=== PATIENT | female | born 1985 | race African-American/Black ===

== ENCOUNTER → 2019-09-24 16:55 | Outpatient (CLI) | payer OTHER, SELFPAY ==
--- NOTE | ~2019-09-24 | XR_ITS ---
XR lumbar spine 2-3V 09/24/2019 17:41 Indication: Low back pain Procedure: 2 views lumbar spine Comparison: No prior studies for comparison. Findings: Vertebral body and disc heights are preserved. No fracture, subluxation or dislocation. No evidence for spondylolysis or spondylolisthesis. Pedicles intact. Sacral foramen are symmetric. Later al views limited by rotation. Impression: 1: No significant abnormality of the lumbar spine. Reviewed, dictated and finalized at location A. Impression: 1: No significant abnormality of the lumbar spine.
--- NOTE | ~2019-09-24 | XR_ITS ---
EXAMINATION: XR knee LT min 4V EXAM DATE: 09/24/2019 17:41 INDICATION: Initial encounter following injury, with pain of the left knee. TECHNIQUE: Left knee frontal, crosstable lateral, orthogonal oblique projections for interpretation. There is no prior study for comparison. FINDINGS: Along the medial aspect of the medial femoral condyle there is ossification which appears to be most likely an acute closed posttraumatic avulsion fracture, could be of the medial collateral ligament, measuring about 2 cm in craniocaudal length by 5 mm in thickness (Stieda fracture). There i s moderate amount of fluid within the left knee joint probably hemarthrosis. Recommend orthopedic con sult. IMPRESSION: 1. Probable acute medial collateral ligament avulsion fracture at the femoral condyle; recommend ort hopedic consult. 2. Moderate joint effusion/hemarthrosis. Reviewed, dictated and finalized at location A. IMPRESSION: 1. Probable acute medial collateral ligament avulsion fracture at the femoral condyle; recommend orthopedic consult. 2. Moderate joint effusion/hemarthrosis.
--- NOTE | ~2019-09-24 | XR_ITS ---
EXAMINATION: XR ankle RT min 3V EXAM DATE: 09/24/2019 17:40 INDICATION: No known recent injury provided at this time. Pain of the right heel. TECHNIQUE: Right ankle frontal, lateral and oblique projections obtained and reviewed. There is no p rior study for comparison. FINDINGS: The right ankle mortise appears intact. Tiny amount of posterior calcaneal spurring, Ach illes insertion enthesopathy. There are no acute fractures or dislocations identified. No Sharif's d eformity or evidence of calcaneal stress fracture There is no subcutaneous gas. The soft tissue is u nremarkable. There are no radiopaque foreign bodies. IMPRESSION: Tiny amount of Achilles tendon insertion enthesopathy. Reviewed, dictated and finalized at location A.
== END ==
PROVIDERS: PCP Emergency Medicine; Visit Provider Emergency Medicine
DX: M79.671 Pain in right foot (principal); M54.5 Low back pain; M25.562 Pain in left knee; M25.462 Effusion, left knee; R93.6 Abnormal findings on diagnostic imaging of limbs; M76.61 Achilles tendinitis, right leg
CPT/HCPCS: 72100; 73564; 73610

== ENCOUNTER 2019-09-25 17:30 | Emergency (ER) | payer OTHER, SELFPAY ==
[2019-09-25 18:00] VITALS: BP 126/75; PULSE 79; RESP 16; TEMP 36.5; O2SAT 99
--- NOTE | 2019-09-25 18:15 | ED.EXTPRO ---
HPI - Extremity Problem General Chief complaint: Extremity Injury, Lower Stated complaint: left knee pain Time Seen by Provider: 09/25/19 18:15 Source: patient and RN notes reviewed Mode of arrival: ambulatory Limitations: no limitations History of Present Illness HPI Narrative: This is a 33 years old female presented to the office for evaluation of left knee pain for 2 weeks. Symptoms began when she was jumping on trampoline 2 Sundays ago; pain is intermittent since then and worse when she is on her feet. She saw her doctor about a week ago who ordered an x-ray and she finally got time to do an x-ray yesterday and she went in to follow-up with him today who prompted her to come to urgent care. She is unsure why he sent her here however she said her doctor told her [facility] She had orthopedic contact info however the office was closed when she try to call. She also wonders about a work restriction and would like to get one. Related Data Home Medications Medication Instructions Recorded Confirmed ibuprofen 09/25/19 Allergies Allergy/AdvReac Type Severity Reaction Status Date / Time No Known Allergies Allergy Mild Verified 01/20/08 20:54 Review of Systems Review of Systems: Narrative: CONSTITUTIONAL: Denies fever ENT: Denies congestion CARDIOVASCULAR: Denies chest pain RESPIRATORY: Denies dyspnea GASTROINTESTINAL: Denies nausea, vomiting GENITOURINARY: Denies urinary symptoms SKIN: Denies rash/bruise MUSCULOSKELETAL: Reports left knee pain especially with weight bearing NEUROLOGIC: Denies numbness PMFSH Comments At time of signature, I agree with nursing past medical, surgical, social and family history. There is no relevant family history pertinent to the presenting complaint. Exam Narrative: Exam Narrative: GENERAL: This is a well-nourished, well-developed patient, in no apparent distress. CARDIOVASCULAR: Regular rate and rhythm without murmurs, gallops, or rubs. RESPIRATORY: Clear to auscultation. Breath sounds equal bilaterally. No wheezes, rales, or rhonchi. NEURO: awake, alert, and oriented to person, place and time. There were no obvious focal neurologic abnormalities. Steady gait EXTREMITIES:Patient is able to bear weight and ambulate antagia gait. No surface of trauma or obvious effusion. No overlying erythema or warmth. The left knee is without obvious asymmetry or deformity when comparing to the right. Patient is able to do a deep knee bend with symmetry, fully extended knee; however there is limitation with internal and external rotation. Nontender to palpate of the patella, no effusion. Nontender over the medial or lateral joint line, or medial or lateral tibial plateaus. Nontender over the proximal fibular head. There is tenderness to palpate popliteal fossa. NO quadriceps tenderness. Distal motor and neurovascular status intact. [place] Coma Scale Eye Opening: Spontaneous 4 Maegan Coma Scale Motor: Obeys Commands 6 Maegan Coma Scale Verbal: Oriented 5 Course Vital Signs Vital signs: Vital Signs Temperature 97.7 F 09/25/19 18:00 Pulse Rate 79 09/25/19 18:00 Respiratory Rate 16 09/25/19 18:00 Blood Pressure 126/75 09/25/19 18:00 Pulse Oximetry 99 09/25/19 18:00 Temperature 97.7 F 09/25/19 18:00 Pulse Rate 79 09/25/19 18:00 Respiratory Rate 16 09/25/19 18:00 Blood Pressure 126/75 09/25/19 18:00 Pulse Oximetry 99 09/25/19 18:00 MDM - Extremity (Nontraumatic) MDM Narrative Medical decision making narrative: I reviewed patient out patient xray result that she did yesterday with the patient; recommend dom wrap, limited weight bearing until she can see Ortho. As for work restriction; I recommend she calls her PCP for it. Discharge instructions reviewed with patient, as well as provided in writing per nursing staff. The instructions also include specific and strict return/GO TO THE ER as well as f/u information.
== END 2019-09-25 18:33 | disposition home or self-care (01) ==
PROVIDERS: Emergency Provider Nurse Practitioner; PCP Emergency Medicine
DX: M25.562 Pain in left knee (principal)
CPT/HCPCS: 99212; G0463

== ENCOUNTER 2024-09-21 23:13 | Emergency (ER) | payer MEDICAID, SELFPAY ==
--- NOTE | ~2024-09-21 | XR_ITS ---
Clinical Indication: Chest pain PA and lateral views of the chest: Comparison: None Findings: The lungs are clear, without evidence of focal consolidation or pleural effusion. Cardiome diastinal silhouette is within normal limits. Bones and soft tissues are unremarkable. Impression: Normal chest. Reviewed, dictated and finalized at location . Impression: Normal chest.
--- NOTE | ~2024-09-21 | XR_ITS ---
Right Shoulder Technique: AP and scapular Y views were obtained. Clinical History: Pain Findings: No fracture or dislocation is seen. Osseous alignment is anatomic. The glenohumeral and acr omioclavicular joint spaces are preserved. Soft tissues are unremarkable. Impression: Unremarkable right shoulder radiographs. Reviewed, dictated and finalized at [facility]. Impression: Unremarkable right shoulder radiographs.
--- NOTE | 2024-09-21 23:16 | ECG_ITS ---
Test Date: 2024-09-21 23:18:58 Measurements Intervals [place] Rate: 83 P: 45 NE: 122 QRS: 12 QRSD: 92 T: -30 QT: 356 QTc: 420 Interpretive Statements SINUS RHYTHM NONSPECIFIC T-WAVE ABNORMALITY- ANTEROLAT/INF LEADS BASELINE ARTIFACT- I, II, AVR BORDERLINE ECG No previous ECG available for comparison Electronically Signed On 09-22-2024 07:07:46 CDT by Nicholas Rockwell D.O.
[2024-09-21 23:17] VITALS: BP 134/76; PULSE 83; RESP 24; TEMP 36.8; O2SAT 100
[2024-09-21 23:25] VITALS: PULSE 89
[2024-09-21 23:39] LABS: Basophils Percent Auto 0.3 % (0.2-1.2); Eosinophils Absolute Auto 0.1 K/mm3 (0-0.3); Eosinophils Percent Auto 1.9 % (0-4.4); Hematocrit 29.6 % (37.0-47.0); Hemoglobin 8.5 g/dL (12.0-15.0); Immature Granulocyte Absolute 0.01 K/mm3 (0.00-0.031); Immature Granulocyte Percent A 0.2 % (0-0.5); Lymphocytes Absolute Auto 1.95 K/mm3 (0.9-3.2); Lymphocytes Percent Auto 33.8 % (18.3-44.2); Mean Corpuscular HGB Conc 28.7 g/dl (32-36); Mean Corpuscular Hemoglobin 20.9 pg (26-34); Mean Corpuscular Volume 72.7 fl (80-100); Mean Platelet Volume 9.8 fl (7.4-10.4); Monocytes Absolute Auto 0.4 K/mm3 (0.1-0.6); Monocytes Percent Auto 6.2 % (2.6-8.5); Neutrophils Absolute Auto 3.3 K/mm3 (1.3-6.7); Neutrophils Percent Auto 57.6 % (45.5-73.1); Platelet Count Result 329 k/mm3 (150-375); Red Blood Count 4.07 M/mm3 (4.2-5.4); Red Cell Distribution Width 20.4 % (11.5-14.5); White Blood Count 5.8 K/mm3 (4.5-10.0)
[2024-09-21 23:49] LABS: INR 1.1
[2024-09-21 23:50] LABS: Partial Thromboplastin Time 25.5 Seconds (22.3-36.8)
--- OUTSIDE RECORDS SUMMARY | 2024-09-21 23:54 | XMS_ITS | Encounter Summary ---
Author Organization [facility] Address 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 Role Phone Unavailable Primary Care Provider Unavailabl e Encounter Details Date Type Department Care Team (Late st Contact Info) Description 12/23/2015 Lab Requisition [facility] [address] [facility] [address] Med Sorensen MD [address] [address] Social History Tobacco Use Types Packs/Day Years Used Date Smoking Tobacco: Never Assessed Comments Unknown Sex and Gender Information Value Date Recorded Sex Assigned at Not on file Legal Sex Female 1:31 PM CDT Gender Identity Not on file Sexual Orientation Not on file documented as of this encounter Plan of Treatment Not on file documented as of this encounter Procedures Procedure Name Priority Date/Time Associated Diagnosis Comments HEPATITIS B SURFACE AB, QUANT Routine 12/23/2015 12:15 PM CDT RUBEOLA IGG Routine 12/23/2015 12:15 PM CDT RUBELLA IGG Routine 12/23/2015 12:15 PM CDT MUMPS IGG ANTIBODY Routine 12/23/2015 12 :15 PM CDT documented in this encounter Results * RUBEOLA IGG (12/23/2015 12:15 PM CDT) RUBEOLA IGG Positive 12/24/2015 2:42 PM CDT [facility] Comment: Results suggest response to immunization or prior exposure to the virus. REFERENCE VALUE Vaccinated: Positive (>=1.1 AI) Unvaccinated: Negative (<=0.8 AI) RUBEOLA IGG INDEX 1.6 12/24/2015 2:42 PM CDT [facility] Comment: Test Performed by: [address] [address] [employer] Mach[employer] Repairer: Shay Hendrickson II, M.D., Ph.D. Blood specimen (specimen) 12/23/2015 12:15 PM CDT 12/23/2015 4:21 PM CDT Med Sorensen MD CHEMISTRY ORDERABLES Final Result [facility] * MUMPS IGG ANTIBODY (12/23/2015 12:15 PM CDT) MUMPS IGG AB Positive 12/24/2015 2:42 PM CDT [facility] Comment: Results suggest response to immunization or prior exposure to the virus. REFERENCE VALUE Vaccinated: Positive (>=1.1 AI) Unvaccinated: Negative (<=0.8 AI) MUMPS IGG INDEX 1.1 12/24/2015 2:42 PM CDT [facility] Comment: Test Performed by: [address] [address] [employer] Repairer: Shay Hendrickson II, M.D., Ph.D. Blood specimen (specimen) 12/23/2015 12:15 PM CDT 12/23/2015 4:21 PM CDT Med Sorensen MD CHEMISTRY ORDERABLES Final Result [facility] * HEPATITIS B SURFACE AB, QUANT (12/23/2015 12:15 PM CDT) HEPATITIS B SURF AB,QN >1,000.0 mlU/mL 12/23/2015 5:55 PM CDT [facility] HEPATITIS B SURFACE AB INTERP Reactive See Interp 12/23/2015 5:55 PM CDT [facility] Blood 12/23/2015 12:1 5 PM CDT 12/23/2015 4:21 PM CDT [facility] - 12/23/2015 5:55 PM CDT Patient has immunity to Hepatitis B virus. This assay is used to determine immune status to Hepatitis B as greater than or equal to 10 mIU/mL as per CDC guidelines (MMWR:vol 55: RR-16, 2006). Med Sorensen MD CHEMISTRY ORDERABLES Final Result [facility] CLIA# [id number] [address] [place] [address] * RUBELLA IGG (12/23/2015 12:15 PM CDT) RUBELLA IGG IMMUNE Immune - Positive 12/23/2015 5:52 PM CDT [facility] Blood 12/23/2015 12:1 5 PM CDT 12/23/2015 4:21 PM CDT [facility] - 12/23/2015 5:52 PM CDT A positive result suggests response to immunization or prior exposure to the virus. Med Sorensen MD CHEMISTRY ORDERABLES Final Result [facility] CLIA# [id number] [address] [place] [address] documented in this encounter Visit Diagnoses Not on filedocumented in this encounter
--- OUTSIDE RECORDS SUMMARY | 2024-09-21 23:54 | XMS_ITS | Clinical Summary ---
Author Organization [facility] Address [address] [place] [address] Care Team Providers Care Tool Technician Name Role Phone Unavailable Primary Care Provider Unavailabl e Source Comments [facility],non-owned Affiliates and Associated Physician Practices is amultiple site organization consisting of ambulatory clinics and hospital sitesin [place], [place], [place] and [place]. This disclosure is being madepursuant to the Care Everywhere program and may not contain all information available regarding this patient. Last updated [facility] Allergies No known active allergies Medications * Be aware that medications may not be up to date on this document. Alwaysverify current medications with the patient. Slynd 4 MG TABS tablet 03/05/2024 Active Family History Medical History Relation Name Comments DVT - Deep Vein Thrombosis Father DVT - Deep Vein Thrombosis Mother Relation Name Status Comments Father Mother Social History Tobacco Use Types Packs/Day Years Used Date Smoking Tobacco: Former Cigarettes Q uit: 06/12/2019 Smokeless Tobacco: Never Alcohol Use Standard Drinks/Week Comments Never 0 (1 standard drink = 0.6 oz pur e alcohol) Comments No Sex and Gender Information Value Date Recorded Sex Assigned at Not on file Legal Sex Female 11:27 AM NARCOTICS DETECTIVE Gender Identity Not on file Sexual Orientation Not on file Last Filed Vital Signs Vital Sign Reading Time Taken Comments Blood Pressure 102/68 04/05/2024 1:33 PM NARCOTICS DETECTIVE Pulse 72 03/12/2024 9:53 AM NARCOTICS DETECTIVE Temperature 36.6 C (97.9 F) 02/21/2024 11:28 AM NARCOTICS DETECTIVE Respiratory Rate 20 03/12/2024 9:53 AM NARCOTICS DETECTIVE Oxygen Saturation 100% 02/21/2024 12:07 PM NARCOTICS DETECTIVE Inhaled Oxygen Concentration - - Weight 140.6 kg (310 lb) 04/05/2024 1:33 PM NARCOTICS DETECTIVE Height 165.1 cm (5' 5) 04/05/2024 1:33 PM NARCOTICS DETECTIVE Body Mass Index 51.59 04/05/2024 1:33 PM NARCOTICS DETECTIVE Plan of Treatment Health Maintenance Due Date Last Done Comments HIV SCREENING 10/28/2002 HEPATITIS C SCREENING 10/24/2005 DTAP/TDAP/TD VACCINES (1 - Tdap) 10/28/2006 HEPATITIS B VACCINE (1 of 3 - 19+ 3-dose series) 10/28/2006 COVID-19 VACCINE (2023-2 5 season) 2023 02/15/2021, 01/25/2021 DEPRESSION SCREENING 04/17/2024 INFLUENZA VACCINE (Season Ended) 2024 02/28/2017, 12/23/2015 PAP SMEAR 03/07/2025 03/07/2022, 03/07/2022 ZOSTER VACCINE (1 of 2) 10/28/2037 HIB VACCINE Aged Out No longer eligi ble based on patient's age to complete this topic HPV VACCINE Aged Out No longer eligi ble based on patient's age to complete this topic MENINGOCOCCAL (Group B) VACCINE SHARED DECISION-MAKING Aged Out No longer eligible based on patient's age to complete this topic MENINGOCOCCAL GROUPS A/C/Y/W VACCINE Aged Out No longer eligible b ased on patient's age to complete this topic PNEUMOCOCCAL VACCINE Aged Out No long er eligible based on patient's age to complete this topic [place] [address] MEDICA[place]
--- OUTSIDE RECORDS SUMMARY | 2024-09-21 23:54 | XMS_ITS | Data Portability ---
Author Organization [facility] Address [address] [place] [address] Care Team Providers Care Film Booker Name Role Phone PADDY KNOWLES Primary Care Provider Assessment Encounter Date Assessment Date Assessment LastModified by Organization Details LastModified Time 01/27/2022 01/27/2022 The patient and I disscussed the various causes of abnormal uterine bleeding, including polyps, fibroids, hyperplasia, atypia, anovulation, etc. We reviewed the typical evaluation with labs, pelvic US and possible endometrial biopsy. Briefly discussed the options available for treatment (depending on the results of evaluation) such as hormonal treatment (OCPs, progestins), Mirena, endometrial ablation, and surgery. We spent more than 30 minutes face to face. [email or web address] Not available 01/27/2022 12:52:18 Plan of Treatment Reminders Order Date Submit Date Provider Last Modified By Organization Details Last Modified Time Details Appointments None recorded . Lab CBC w/ auto diff 2021 [facility] (Lab), [address], [place], [address], 08:11:57 vitamin B12 + folate, serum or blood 2021 [facility] (Lab), [address], [place], [address], 08:11:57 iron + TIBC + ferritin , serum 2021 [facility] (Lab), [address], [place], [address], 08:10:46 reticulo cyte count, auto, blood 2021 [facility] (Lab), [address], [place], [address], 08:11:56 hbcab (hepatit is B core Ab) igm, serum 2021 [facility] (Lab), [address], [place], [address], 16:38:21 HBsAg (hepatit is B surface Ag), serum 2021 [facility] (Lab), [address], [place], [address], 16:38:15 hepatiti s C virus Ab, serum 2021 [facility] (Lab), [address], [place], [address], 16:38:15 unlisted lab - HIV 1/2 antigen/ antibody , reflex confirma tion 2021 [facility] (Lab), [address], [place], [address], 16:38:20 RPR (rapid plasma reagin), serum 2021 [facility] (Lab), [address], [place], [address], 16:38:20 unlisted lab - 17-oh progeste daniel, lc/MS/MS 2021 [facility] (Lab), [address], [place], [address], 16:38:21 dhea-sul fate, serum 2021 [facility] (Lab), [address], [place], [address], 16:38:16 hormone panel, serum or plasma 2021 [facility] (Lab), [address], [place], [address], 16:38:18 HbA1c (hemoglo bin A1c), blood 2021 [facility] (Lab), [address], [place], [address], 16:38:20 progeste daniel, serum 2021 [facility] (Lab), [address], [place], [address], 16:38:17 prolacti n, serum 2021 [facility] (Lab), [address], [place], [address], 16:38:17 shbg (sex hormone- binding globulin ), serum 2021 [facility] (Lab), [address] [place], [address], 16:38:19 testoste daniel free/erick tosteron e total, ratio, serum 2021 [facility] (Lab), [address] [place], [address], 16:38:22 TSH, serum or plasma 2021 [facility] (Lab), [address], [place], [address], 16:38:19 CBC w/ auto diff 2021 [facility] (Lab), [address], [place], [address], 16:38:16 Referral hematolo gist referral - AnemiaPl ease contact this patient to schedule an appointm entAttac hed are the patients demograp hics, most recent office visit notes and lab results. If you have any question s, please contact me at [phone].Th ank alexei, Leatha, Referral 's 2021 [facility], [address] [facility], [address], [address], 13:14:34 Procedures None recorded . Surgeries None recorded . Imaging US, pelvis [address], [address], [address], [place], [address], 19:39:44 US, transvag inal [address], [address], [address], [place], [address], 19:39:44 US, pelvis, complete 2021 [facility], [address], [address], [place], [address], 15:16:53 Medication Orders Prometri um 200 mg capsule 2021 [id number], [address] [place] [address], [id number], 12:50:31 Patient TargetsNo targets recorded. Patient InstructionsNo instructions recorded. Reason for Referral AnemiaPlease contact this pa tient to schedule an appointmentAttached are the patients demographics, most recent office visit notes and lab results.If you have any questions, please contact me at [phone].Thank you, Leatha Referral's Referring Physician: Fransisca Chan, EUCLID OPERATOR, Encounter Date: 03/07/2022 Results Created Date Observation Date Name Description Value Unit Range Abnormal Flag Note LastModifiedBy Organization Detail LastModifiedTime 01/28/2001/27/2022 CT/GC AND TRICH OMONA S VAGIN HARLAN (RRNA ), SWAB chlamydia trachomatis, PCR Negati ve negati ve Not Available [facility] [address] [place] [address], [address], 01/28/2022 14:59:11 01/28/2001/27/2022 CT/GC AND TRICH OMONA S VAGIN HARLAN (RRNA ), SWAB neisseria gonorrhoeae, PCR Negati ve negati ve Not Available [facility] [address] [place] [address], [address], 01/28/2022 14:59:11 01/28/20 22 01/27/2022 CT/GC AND TRICH OMONA S VAGIN HARLAN (RRNA ), SWAB trichomonas vaginalis ribosomal RNA (rrna) Negati ve negati ve Not Available [facility] [address] [place] [address], [address], 01/28/2022 14:59:11 01/28/20 22 01/27/2022 HEPAT ITIS B SURFA CE ANTIG EN hepatitis B surface antigen Non-re active non-re active This assay was perfo rmed using [employer] ratio n reage nts and test kits. Value s obtai kai with other assay metho ds or kits canno t be used inter russ eably . Not Available [facility] [address] [place] [address], [address], 02/02/2022 16:38:15 01/28/20 22 01/27/2022 HEPAT ITIS C ANTIB ANITA SCREE N, REFLE X TO CONFI RMATI ON hepatitis C antibody Non-re active non-re active Antib odies to HCV Not Detec irina, does not exclu de the possi bilit y of expos ure to HCV. Not Available [facility] [place], [address], 02/02/2022 16:38:15 01/28/20 22 01/27/2022 DHEA SULFA TE DHEA-sulfate 232 ug/dL Femal e Range s Age(y ) Range (ug/d L) 10-15 34-28 0 15-20 65-36 8 20-25 148-4 07 25-35 99-34 0 35-45 61-33 7 45-55 35-25 6 55-65 19-20 5 65-75 9-246 > 75 12-15 4 Not Available [facility] [address] [place], [place] [address], [place], [address], 02/02/2022 16:38:16 01/28/20 22 01/27/2022 CBC W/DIF F WBC 4.6 10'3/ uL 3.6-10 .2 Not Available [facility] [address] [place], [place] [address], [place], [address], 02/02/2022 16:38:16 01/28/20 22 01/27/2022 CBC W/DIF F RBC 3.88 10'6/ uL (based on docume nted legal sex) 4.10-5 .30 low Not Available [facility] [address] [place], [place] [address], [place], [address], 02/02/2022 16:38:16 01/28/20 22 01/27/2022 CBC W/DIF F HGB 9.0 g/dL (based on docume nted legal sex) 11.9-1 5.8 low Not Available [facility] [place], [address], 02/02/2022 16:38:16 01/28/20 22 01/27/2022 CBC W/DIF F HCT 30.3 % (based on docume nted legal sex) 37.4-4 8.3 low Not Available [facility] [place], [address], 02/02/2022 16:38:16 01/28/20 22 01/27/2022 CBC W/DIF F MCV 78.1 fL 82.0-9 9.0 low Not Available [facility] [place], [address], 02/02/2022 16:38:16 01/28/2001/27/2022 CBC W/DIF F MCH 23.2 pg 27.0-3 3.0 low Not Available [facility] [place], [address], 02/02/2022 16:38:16 01/28/20 22 01/27/2022 CBC W/DIF F MCHC 29.7 g/dL 32.0-3 6.0 low Not Available [facility] [place], [address], 02/02/2022 16:38:16 01/28/20 22 01/27/2022 CBC W/DIF F RDW 18.6 % 11.0-1 5.0 high Not Available [facility] [place], [address], 02/02/2022 16:38:16 01/28/20 22 01/27/2022 CBC W/DIF F plt 350 10'3/ uL 150-45 0 Not Available [facility] [place], [address], 02/02/2022 16:38:16 01/28/2001/27/2022 CBC W/DIF F MPV 11.5 fL 9.8-12 .7 Not Available [facility] [address] [place], [address], 02/02/2022 16:38:16 01/28/2001/27/2022 CBC W/DIF F NRBC's 0.0 % 0 Not Available [facility] [address] [place], [address], 02/02/2022 16:38:16 01/28/2001/27/2022 CBC W/DIF F absolute NRBCs 0.0 10'3/ uL 0 Not Available [facility] [place], [address], 02/02/2022 16:38:16 01/28/2001/27/2022 CBC W/DIF F neutrophils 45.9 % 37.0-7 2.0 Not Available [facility] [place], [address], 02/02/2022 16:38:16 01/28/2001/27/2022 CBC W/DIF F lymphocytes 44.0 % 16.0-4 8.0 Not Available [facility] [place], [address], 02/02/2022 16:38:16 01/28/2001/27/2022 CBC W/DIF F monocytes 6.4 % 4.0-14 .0 Not Available [facility] [place], [address], 02/02/2022 16:38:16 01/28/20 22 01/27/2022 CBC W/DIF F eosinophils 2.6 % 0.0-9. 0 Not Available [facility] [address] [place], [place] [address], [place], [address], 02/02/2022 16:38:16 01/28/20 22 01/27/2022 CBC W/DIF F basophils 0.9 % 0.0-2. 0 Not Available [facility] [address] [place] [address], [address], 02/02/2022 16:38:16 01/28/2001/27/2022 CBC W/DIF F immature granulocytes 0.2 % no define d refere nce range Not Available [facility] [address] [place] [address], [address], 02/02/2022 16:38:16 01/28/2001/27/2022 CBC W/DIF F absolute neutrophils 2.1 10'3/ uL 1.1-6. 0 Not Available [facility] [address] [place] [address], [address], 02/02/2022 16:38:16 01/28/2001/27/2022 CBC W/DIF F absolute lymphocytes 2.0 10'3/ uL 0.7-3. 4 Not Available [facility] [address] [place] [address], [address], 02/02/2022 16:38:16 01/28/2001/27/2022 CBC W/DIF F absolute monocytes 0.3 10'3/ uL 0.3-1. 0 Not Available [facility] [address] [place] [address], [address], 02/02/2022 16:38:16 10/13/20 22 01/27/2022 CBC W/DIF F absolute eosinophils 0.1 10'3/ uL 0.0-0. 6 Not Available [facility] [address] [place] [address], [address], 02/02/2022 16:38:16 01/28/20 22 01/27/2022 CBC W/DIF F absolute basophils 0.0 10'3/ uL 0.0-0. 1 Not Available [facility] [address] [place] [address], [address], 02/02/2022 16:38:16 01/28/20 22 01/27/2022 CBC W/DIF F absolute immature granulocytes 0.0 10'3/ uL 0.00-0 .10 01/28 1:24 AM: P indic ates parti al resul ts on a panel have been relea sed. Addit ional resul ts will follo w. 01/28 1:24 AM: This resul t has been final verif ied. No addit ional or russ ed resul ts are expec irina. Not Available [facility] [address] [place] [address], [place], [address], 02/02/2022 16:38:16 01/28/20 22 01/27/2022 PROGE STERO NE progesterone 0.12 NG/mL This assay was perfo rmed using [employer] ratio n reage nts and test kits. Value s obtai kai with other assay metho ds or kits canno t be used inter russ eably . Femal e Proge stero ne Range s: Folli cular phase 0.06- 0.89 ng/mL Ovula tion phase 0.12- 12.00 ng/mL Lutea l phase 1.83- 23.90 ng/mL Postm enopa usal< 0.05- 0.13 ng/mL Healt hy Pregn ant Women 1st Trime ster1 1.0-4 4.30 2nd Trime ster2 5.40- 83.30 3rd Trime ster5 8.70- 214.0 0 Not Available [facility] [address] [place], [address], 02/02/2022 16:38:17 01/28/20 22 01/27/2022 PROLA CTIN prolactin, total 21.30 NG/mL 4.79-2 3.30 This assay was perfo rmed using [employer] ratio n reage nts and test kits. Value s obtai kai with other assay metho ds or kits canno t be used inter [facility] . Not Available [facility] [address] [place], [address], 02/02/2022 16:38:17 01/28/20 22 01/27/2022 FSH, LH, ESTRA DIOL estradiol 50.7 pg/mL This assay was perfo rmed using [employer] ratio n reage nts and test kits. Value s obtai kai with other assay metho ds or kits canno t be used inter [facility] . Femal e Estra diol Range s: Folli cular phase 12.4- 233 pg/mL Ovula tion phase 41.0- 398 pg/mL Lutea l phase 22.3- 341 pg/mL Postm enopa usal< 5-138 pg/mL Healt hy Pregn ant Women 1st Trime ster1 54-32 43 pg/mL 2nd Trime ster1 561-2 1280 pg/mL 3rd Trime ster8 525-> 97612 pg/mL Not Available [facility] [address] [place], [address], 02/02/2022 16:38:18 01/28/20 22 01/27/2022 FSH, LH, ESTRA DIOL FSH 6.1 mIU/m L This assay was perfo rmed using [employer] ratio n reage nts and test kits. Value s obtai kai with other assay metho ds or kits canno t be used inter [facility] . Femal es Folli cular : 3.5-1 2.5 mIU/m L Ovula tion: 4.7-2 1.5 mIU/m L Lutea l: 1.7-7 .7 mIU/m L Postm enopa use: 25.8- 134.8 mIU/m L Not Available [facility] [address] [place], [address], 02/02/2022 16:38:18 01/28/20 22 01/27/2022 FSH, LH, ESTRA DIOL LH 10.3 mIU/m L This assay was perfo rmed using [employer] ratio n reage nts and test kits. Value s obtai kai with other assay metho ds or kits canno t be used inter russ eably . Femal es Mid-F ollic ular: 2.4-1 2.6 mIU/m L Mid-C ycle: 14.0- 95.6 mIU/m L Mid-L uteal : 1.0-1 1.4 mIU/m L Postm enopa use: 7.7-5 8.5 mIU/m L Not Available [facility] [address] [place], [address], 02/02/2022 16:38:18 01/28/20 22 01/27/2022 T4 FREE T4, free 0.84 NG/dL 0.60-1 .40 Not Available [facility] [address] [place], [address], 02/02/2022 16:38:18 01/28/20 22 01/27/2022 TSH, REFLE X FREE T4 TSH 6.09 uIU/m L 0.30-5 .33 high Not Available [facility] [address] [place], [address], 02/02/2022 16:38:19 01/28/20 22 01/27/2022 HUMAN SEX HORMO NE NALLELY NG GLOBU CAROL sex hormone binding globulin 20.7 nmole s/L 18.2-1 35.5 Not Available [facility] [address] [place], [address], 02/02/2022 16:38:19 01/28/20 22 01/27/2022 HEMOG LOBIN A1C hemoglobin A1C 5.9 % 0-5.6 high The Ameri can [employer]abe erick [employer] iatio n recom mends that a prima ry goal of thera py shoul d be a HBA1C of < 7% and that physi cians shoul d reeva luate the treat ment regim en in patie nts with HBA1C value s consi stent ly > 8%. <5.7% Briana l 5.7 - 6.4% Incre ased risk for diabe erick >=6.5 % Diagn ostic of diabe erick <7.0% Goal of thera py >8.0% Actio n sugge sted Not Available [facility] [address] [place] [address], [address], 02/02/2022 16:38:19 01/28/20 22 01/27/2022 HIV 1/2 ANTIG EN/AN TIBOD Y, REFLE X CONFI RMATI ON HIV Ag-Ab total quant 0.09 idx <1.00 Not Available [facility] [address] [place] [address], [address], 02/02/2022 16:38:20 01/28/20 22 01/27/2022 HIV 1/2 ANTIG EN/AN TIBOD Y, REFLE X CONFI RMATI ON HIV Ag-Ab total Non-re active non-re active Not Available [facility] [address] [place] [address], [address], 02/02/2022 16:38:20 01/28/20 22 01/27/2022 HIV 1/2 ANTIG EN/AN TIBOD Y, REFLE X CONFI RMATI ON HIV-1 antibody quant 0.05 idx <1.00 Not Available [facility] [address] [place] [address], [address], 02/02/2022 16:38:20 01/28/20 22 01/27/2022 HIV 1/2 ANTIG EN/AN TIBOD Y, REFLE X CONFI RMATI ON HIV-1 antibody Non-re active non-re active Not Available [facility] [address] [place] [address], [address], 02/02/2022 16:38:20 01/28/20 22 01/27/2022 HIV 1/2 ANTIG EN/AN TIBOD Y, REFLE X CONFI RMATI ON HIV-1 antigen (P24) quant 0.09 idx <1.00 Not Available [facility] [address] [place] [address], [address], 02/02/2022 16:38:20 01/28/20 22 01/27/2022 HIV 1/2 ANTIG EN/AN TIBOD Y, REFLE X CONFI RMATI ON HIV-1 antigen (P24) Non-re active non-re active Not Available [facility] [address] [place] [address], [address], 02/02/2022 16:38:20 01/28/20 22 01/27/2022 HIV 1/2 ANTIG EN/AN TIBOD Y, REFLE X CONFI RMATI ON HIV-2 antibody quant 0.05 idx <1.00 Not Available [facility] [address] [place] [address], [address], 02/02/2022 16:38:20 01/28/20 22 01/27/2022 HIV 1/2 ANTIG EN/AN TIBOD Y, REFLE X CONFI RMATI ON HIV-2 antibody Non-re active non-re active HIV testi ng is perfo rmed using [employer] oassa y techn ology . The final overa ll HIV Ag-Ab resul t is deter mined based on the final resul t for each indiv idual rodrigue te. If any of the rodrigue erick has 2 or more repli cates that are REACT QUINTON, the final overa ll HIV Ag-Ab resul t is also React quinton. A Non-R eacti ve test resul t at any point in the inves tigat ion of indiv idual subje cts does not precl ude the possi bilit y of expos ure to or infec tion with HIV-1 and/o r HIV-2 . Non-R eacti ve resul ts can occur if the quant ity of marke r prese nt in the sampl e is below the detec tion limit s of the assay . React quinton speci mens must be inves tigat ed by addit ional , more speci fic suppl ement al tests . Speci men confi rmati on will be perfo rmed by the [employer] us HIV 1/2 Suppl ement al Assay . The perfo rmanc e of this assay has not been estab lishe d for neona erick and the assay shoul d not be used in indiv idual s young er than 2 years of age. Not Available [facility] [address] [place] [address], [address], 02/02/2022 16:38:20 01/28/20 22 01/27/2022 RPR SCREE N/REF AUDELIA TITER /FTA RPR screen Nonrea ctive nonrea ctive Not Available [facility] [address] [place] [address], [address], 02/02/2022 16:38:20 01/28/20 22 01/27/2022 HEPAT ITIS B CORE, IGM hepatitis B core IgM antibody Negati ve negati ve Not Available [facility] [address] [place] [address], [address], 02/02/2022 16:38:21 01/28/20 22 01/27/2022 17-OH PROGE STERO NE 17-hydroxypr ogesterone, lc/MS/MS 22 NG/dL Adult Femal e Refer ence Range s for 17-Hy droxy proge stero ne: Pre-M enopa usal Mid Folli cular : 23-10 2 ng/dL Pre-M enopa usal Surge : 67-34 9 ng/dL Pre-M enopa usal Mid Lutea l: 139-4 31 ng/dL Postm enopa usal Phase : < or = 45 ng/dL Pregn mike: First Trime ster: 78-45 7 ng/dL Secon d Trime ster: 90-35 7 ng/dL Third Trime ster: 144-5 78 ng/dL This test was devel oped and its rodrigue tical perfo rmanc e jens cteri stics have been deter mined by [facility] . It has not been clear ed or appro luzma by FDA. This assay has been valid ated pursu ant to the CLIA regul ation s and is used for clini yessica purpo ses. Perfo rming Organ izati on Bimal marvin: Site ID: [id number] Name: [facility] , Addre ss: [id number] [place], [place] Direc tor: Yoly patterson MD,Ph D,TIGIST Not Available [facility] [address] [place], [place], , 02/02/2022 16:38:21 01/28/20 22 01/27/2022 TESTO STERO NE, FREE( DIALY SIS) AND TOTAL (LC/M S/MS) testosterone , total 34 NG/dL 2-45 For addit ional christiano vega e refer to http: //katy marvin.que stdia gnost ics.c om/fa q/Tot alTes toste [facility] (This link is being provi ded for infor matleila nal/ educa adriane l purpo ses only. ) This test was devel oped and its rodrigue tical perfo rmanc e jens cteri stics have been deter mined by [employer] [facility]. It has not been clear ed or appro luzma by the FDA. This assay has been valid ated pursu ant to the CLIA regul ation s and is used for clini yessica purpo ses. Not Available [facility] [address] [place], [address], 02/02/2022 16:38:22 01/28/20 22 01/27/2022 TESTO STERO NE, FREE( DIALY SIS) AND TOTAL (LC/M S/MS) testosterone , free 6.6 pg/mL 0.1-6. 4 high This test was devel oped and its rodrigue tical perfo rmanc e jens cteri stics have been deter mined by [employer] [facility]. It has not been clear ed or appro luzma by the FDA. This assay has been valid ated pursu ant to the CLIA regul ation s and is used for clini yessica purpo ses. Perfo rming Organ izati on Infor matio n: Site ID: [id number] Name: [employer] [facility] Addre ss: [id number] [place] [address] Direc tor: Yves nieto M.D. Not Available [facility] [address] [place], [address], 02/02/2022 16:38:22 03/07/20 22 03/07/2022 KONSTANTIN TIN / IRON / TRANS KONSTANTIN N / TIBC ferritin / iron / transferrin / TIBC (nmh/lfh/gl/ cdh/kh/vw/nw r) CANCEL LED Unspu n Not Available [facility] [address], [place], [address], 03/08/2022 08:10:46 03/07/20 22 03/07/2022 RETIC ULOCY TE COUNT reticulocyte count percent 1.80 % 0.50-1 .50 high Not Available [facility] [address], [place], [address], 03/08/2022 08:11:56 03/07/20 22 03/07/2022 RETIC ULOCY TE COUNT reticulocyte count absolute 72.40 10'3/ uL 23.2-7 0.7 high Not Available [facility] [address], [place], [address], 03/08/2022 08:11:56 03/07/20 22 03/07/2022 CBC W/DIF F WBC 4.8 10'3/ uL 3.6-10 .2 Not Available [facility] [address], [place], [address], 03/08/2022 08:11:56 03/07/20 22 03/07/2022 CBC W/DIF F RBC 4.00 10'6/ uL (based on docume nted legal sex) 4.10-5 .30 low Not Available [facility] [address], [place], [address], 03/08/2022 08:11:56 03/07/20 22 03/07/2022 CBC W/DIF F HGB 9.3 g/dL (based on docume nted legal sex) 11.9-1 5.8 low Not Available [facility] [address], [place], [address], 03/08/2022 08:11:56 03/07/20 22 03/07/2022 CBC W/DIF F HCT 31.4 % (based on docume nted legal sex) 37.4-4 8.3 low Not Available [facility] [address] [place], [address], 03/08/2022 08:11:56 03/07/20 22 03/07/2022 CBC W/DIF F MCV 78.5 fL 82.0-9 9.0 low Not Available [facility] [address] [place], [address], 03/08/2022 08:11:56 03/07/20 22 03/07/2022 CBC W/DIF F MCH 23.3 pg 27.0-3 3.0 low Not Available [facility] [address], [place], [address], 03/08/2022 08:11:56 03/07/20 22 03/07/2022 CBC W/DIF F MCHC 29.6 g/dL 32.0-3 6.0 low Not Available [facility] ([facility]) [address], [place], [address], 03/08/2022 08:11:56 03/07/20 22 03/07/2022 CBC W/DIF F RDW 17.6 % 11.0-1 5.0 high Not Available [facility] ([facility]) [address], [place], [address], 03/08/2022 08:11:56 03/07/20 22 03/07/2022 CBC W/DIF F plt 359 10'3/ uL 150-45 0 Not Available [facility] ([facility]) [address], [place], [address], 03/08/2022 08:11:56 03/07/20 22 03/07/2022 CBC W/DIF F MPV 11.1 fL 9.8-12 .7 Not Available [facility] ([facility]) [address], [place], [address], 03/08/2022 08:11:56 03/07/20 22 03/07/2022 CBC W/DIF F NRBC's 0.0 % 0 Not Available [facility] ([facility]) [address] [place], [address], 03/08/2022 08:11:56 03/07/20 22 03/07/2022 CBC W/DIF F absolute NRBCs 0.0 10'3/ uL 0 Not Available [facility] ([facility]) [address] [place], [place], [address], 03/08/2022 08:11:56 03/07/20 22 03/07/2022 CBC W/DIF F neutrophils 52.9 % 37.0-7 2.0 Not Available [facility] [address], [place], [address], 03/08/2022 08:11:56 03/07/20 22 03/07/2022 CBC W/DIF F lymphocytes 35.3 % 16.0-4 8.0 Not Available [facility] ([facility]) [address], [place], [address], 03/08/2022 08:11:56 03/07/20 22 03/07/2022 CBC W/DIF F monocytes 7.7 % 4.0-14 .0 Not Available [facility] ([facility]) [address], [place], [address], 03/08/2022 08:11:56 03/07/20 22 03/07/2022 CBC W/DIF F eosinophils 3.3 % 0.0-9. 0 Not Available [facility] (Lab) [address] [facility], [place], [address], 03/08/2022 08:11:56 03/07/20 22 03/07/2022 CBC W/DIF F basophils 0.6 % 0.0-2. 0 Not Available [facility] ([facility]) [address] [facility], [place], [address], 03/08/2022 08:11:56 03/07/20 22 03/07/2022 CBC W/DIF F immature granulocytes 0.2 % no define d refere nce range Not Available [facility] ([facility]) [address], [place], [address], 03/08/2022 08:11:56 03/07/20 22 03/07/2022 CBC W/DIF F absolute neutrophils 2.5 10'3/ uL 1.1-6. 0 Not Available [facility] (Lab) [address] [facility], [place], [address], 03/08/2022 08:11:56 03/07/20 22 03/07/2022 CBC W/DIF F absolute lymphocytes 1.7 10'3/ uL 0.7-3. 4 Not Available [facility] (Lab) [address] [facility], [place], [address], 03/08/2022 08:11:56 03/07/20 22 03/07/2022 CBC W/DIF F absolute monocytes 0.4 10'3/ uL 0.3-1. 0 Not Available [facility] (Lab) [address] [facility], [place], [address], 03/08/2022 08:11:56 03/07/20 22 03/07/2022 CBC W/DIF F absolute eosinophils 0.2 10'3/ uL 0.0-0. 6 Not Available [facility] (Lab) [address] [facility], [place], [address], 03/08/2022 08:11:56 03/07/20 22 03/07/2022 CBC W/DIF F absolute basophils 0.0 10'3/ uL 0.0-0. 1 Not Available [facility] ([facility]) [address] [facility], [place], [address], 03/08/2022 08:11:56 03/07/20 22 03/07/2022 CBC W/DIF F absolute immature granulocytes 0.0 10'3/ uL 0.00-0 .10 03/08 2:18 AM: P indic ates parti al resul ts on a panel have been relea sed. Addit ional resul ts will follo w. 03/08 2:18 AM: This resul t has been final verif ied. No addit ional or russ ed resul ts are expec irina. Not Available [facility] ([facility]) [address] [facility], [place], [address], 03/08/2022 08:11:56 03/07/20 22 03/07/2022 VITAM IN B12 / FOLAT E PANEL vitamin B12 345 pg/mL 180-91 4 Briana l Range : 180-9 14 pg/mL . Indet ermin ate Range : 145-1 80 pg/mL . Defic ient Range : <=145 pg/mL . Not Available [facility] (Lab) [address] [facility], [place], [address], 03/08/2022 08:11:57 03/07/20 22 03/07/2022 VITAM IN B12 / FOLAT E PANEL folate, serum 9.5 NG/mL 6.0-20 .0 Speci men recei luzma unspu n/inc omple tely centr ifuge d. Resul ts could be affec irina by prolo nged conta ct of serum to red cells . Not Available [facility] (Lab) [address] [facility], [place], [address], 03/08/2022 08:11:57 03/07/20 22 03/07/2022 KONSTANTIN TIN ferritin 7.9 NG/mL 8.0-25 2.0 low Speci men recei luzma unspu n/inc omple tely centr ifuge d. Resul ts could be affec irina by prolo nged conta ct of serum to red cells . Not Available [facility] (Lab) [address] [facility], [place], [address], 03/08/2022 10:14:52 03/07/20 22 03/07/2022 CT/GC AND TRICH OMONA S VAGIN HARLAN (RRNA ), URINE chlamydia trachomatis, PCR Negati ve negati ve Not Available [facility] ([facility]) [address] [place], [address], 03/08/2022 13:04:42 03/07/20 22 03/07/2022 CT/GC AND TRICH OMONA S VAGIN HARLAN (RRNA ), URINE neisseria gonorrhoeae, PCR Negati ve negati ve Not Available [facility] (Lab) [address] [facility], [place], [address], 03/08/2022 13:04:42 03/07/20 22 03/07/2022 CT/GC AND TRICH OMONA S VAGIN HARLAN (RRNA ), URINE trichomonas vaginalis ribosomal RNA (rrna) Negati ve negati ve Not Available [facility] ([facility]) [address], [place], [address], 03/08/2022 13:04:42 03/07/20 22 03/07/2022 SURGI YESSICA PATHO LOGY surgical pathology SEE RESULT S BELOW CASE REPOR T: Surgi yessica Patho logy Repor t Case: [id number] Autho ayad gonzalez Provi chapincito: Fransisca Chan NP Colle cted: 03/07 1340 Order ing Locat ion: [place] Path[facility] log[facility] Recei luzma: 03/08 0425 Patho logis t: John Cheng MD Speci men: Endom etriu m, EMB FINAL DIAGN OSIS: Endom etriu m, biops y: -Diso rdere d proli ferat quinton endom etriu m. -No hyper plasi a or malig reena ident ified . Elect manoj alexis by John Cheng MD on 03/09 at 8:52 AM ----- ----- ----- ----- ----- ----- ----- ----- ----- ----- ----- ----- ----- ----- ----- ----- ----- ---- CLINI YESSICA INFOR MATIO N: z01.4 [id number] MICRO SCOPI C DESCR IPTIO N: A micro scopi c exami natio n was perfo rmed. GROSS DESCR IPTIO N: A. Endom etriu m. The speci men is label ed with the ludae nt's name, demog isreal graham and EMB. Recei luzma in forma carol is a 4.0 x 2.0 x 0.[address] [facility] The entir e speci men is submi tted in 2 casse ttes. Gross ed by Lou Callahan Not Available [facility] ([facility]) [address] [facility], [place], [address], 03/11/2022 14:06:09 03/07/20 22 03/07/2022 IMAGE GUIDE D PAP AND HPV REGAR DLESS image guided Pap, HPV regardless of Pap result SEE RESULT S BELOW CASE REPOR T: Cytol ogy Gynec ologi yessica Repor t Case: [id number] Autho ayad g Provi chapincito: Fransisca Chan, JARAD Colle cted: 03/07 1340 Order ing Locat ion: [place] Patho logy Recei luzma: 03/08 0404 First Scree n: Sruthi Ribeiro Rescr een: Grover Lennon, CT Speci men: Scree robel Pap - Image d, Cervi x STATE MENT OF ADEQU ACY: Satis facto ry for evalu ation Trans forma tion zone compo nent prese nt FINAL DIAGN OSIS: Negat quinton for Intra epith elial Alessandra n or Lou valles (NIL) . Funga l organ isms morph ologi kyaw consi stent with Maria Ines da spp. Elect manoj hassan josef d by Grover Lennon, CT on 03/11 at 1:03 PM ----- ----- ----- ----- ----- ----- ----- ----- ----- ----- ----- ----- ----- ----- ----- ----- ----- ---- HPV RESUL TS: HPV mRNA E6/E7 : No HPV mRNA Detec irina NOTE: This high risk HPV mRNA assay detec ts fourt een high- risk HPV types (16, 18, 31, 33, 35, 39, 45, 51, 52, 56, 58, 59, 66, 68) witho ut diffe renti ation . COMME NT: Note: This speci men was revie wed by a Cytot echno logis t and/o r Patho logis t (as indic ated in this repor t) after evalu ation using the Thinp rep Imagi ng Syste m. CLINI YESSICA INFOR MATIO N: Menst rual Statu s: LMP (if appli cable ): Clini yessica Histo ry/Pr eviou s Pap: Type of Neopl keenan (if appli cable ): Signi fican t Clini yessica Findi ngs: Other Histo ry: Hormo marcos (if appli cable ): PAP EDUCA ADRIANE L NOTE: The Pap Test is a scree robel test with an inher ent false negat quinton rate. Liqui d-bas ed sampl ing may decre ase, but will not elimi jimmy, false negat quinton resul ts. A negat quinton resul t does not precl ude the prese nce and/o r devel opmen t of disea se, since the prese nce of abnor mal cells in the sampl e depen ds on the locat ion of the lesio n and sampl ing techn ique. Hiren nued regul ar scree robel is the best metho d of cance r preve ntion . If repor irina cytol ogic findi ng do not corre late with physi yessica and/o r histo rical findi ngs, furth er inves tigat ion is recom kameron d, as clini kyaw loco nted. Not Available [facility] ([facility]) [address], [place], [address], 03/11/2022 14:06:09 02/05/20 22 02/04/2022 US, pelvi s No observ ation record ed. [email or web address] [place] [address], [place], [address], 02/04/2022 17:53:41 02/05/20 22 02/04/2022 US, trans vagin al No observ ation record ed. [email or web address] [place] [address], [place], [address], 02/04/2022 17:53:32 02/05/20 22 02/04/2022 US, vee s No observ ation record ed. DONAVAN Salazar [address], [place], [address], 02/12/2022 06:33:00 Result Notes None recorded. 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 2018 Trichomoni asis, unspecifie d;Recorded Elsewhere: No Locatio n: [facility] rce: EHR Chroni c: N Practice ID: 0001 Billa ble Time: 03:30:00 PM Not Available [facility] 0 16:12:04 Finding of regularit y of menstrual cycle Active 2018 Irregular period;Rec orded Elsewhere: No Locatio n: [facility] rce: EHR Chroni c: N Practice ID: 0001 Billa ble Time: 10:15:00 AM Not Available [facility] 0 16:12:04 Syphilis test finding [id number] Active 2018 Encounter for STD screening; Recorded Elsewhere: No Locatio n: [facility] rce: EHR Chroni c: N Practice ID: 0001 Billa ble Time: 10:15:00 AM Not Available [facility] 0 16:12:04 Problem Notes None recorded. Procedures Surgical History Date Name Laterality Status Provider Name and Address Organization Details Recorded Time 03/07/20 22 Endometrial Biopsy completed PATRICIA Davila [address], [place], [address], [place] [facility] 03/07/2022 11:07:04 10/20/20 15 section completed [facility] 04/07/2020 15:09:15 10/02/19 09 section completed [facility] 04/07/2020 15:09:21 01/06/20 06 section completed [facility] 04/07/2020 15:09:26 Tubal Ligation completed [facility] 04/07/2020 15:09:38 Imaging Results None recorded. Procedure Notes None recorded. Medical Equipment None Reported. Allergies No known drug allergies Medications Name Sig Start Date Stop Date Status Note LastModified by Organization Details LastModified Time amoxicill in 500 mg capsule TAKE 1 CAPSULE BY MOUTH THREE TIMES DAILY EVERY 8 HOURS 01/27 completed Not Available Not Available Not Available clindamyc in HCl 300 mg capsule TAKE 1 CAPSULE BY MOUTH EVERY 6 HOURS 01/27 completed Not Available Not Available Not Available ibuprofen 800 mg tablet TAKE 1 TABLET BY MOUTH THREE TIMES DAILY 01/27 completed Not Available Not Available Not Available Flagyl 500 mg tablet take 1 tablet by oral route every 12 hours x 7 days DO NOT drink alcohol while on this medicati on 01/27 completed Prescrib ed Elsewher e: No [facility]at [facility] odify By: susan ruano Enco unter DateTime : 03/01/20 10:15:00 AM Not Available Not Available Not Available ferrous sulfate 325 mg (65 mg iron) tablet Take 1 tablet every day by oral route for 30 days. 2021 active Not Available Not Available Not Avai lable progester one micronize d 200 mg capsule TAKE 1 CAPSULE BY MOUTH EVERY DAY active Not Available Not Available No t Available docusate sodium 100 mg capsule active Not Available Not Available Not Available Provera 10 mg tablet take 1 tablet by oral route every day x 10 days if you do not have a period at the end of the month. 01/27 completed Prescrib ed Elsewher e: No Locat ion: [facility] odify By: susan ich Enco unter DateTime : 03/01/20 10:15:00 AM Not Available Not Available Not Available Vitals Date Recorded Body height Systolic blood pressure Diastolic blood pressure Provider Name and Address Organization Details Last Updated DateTime 01/27/2022 162.56 cm 114 mm[Hg] 75 mm[Hg] May Burnham [facility] 01/27/2022 09:40:04 Date Recorded Body height Systolic blood pressure Diastolic blood pressure Provider Name and Address Organization Details Last Updated DateTime 03/07/2022 162.56 cm 123 mm[Hg] 79 mm[Hg] May Burnham [facility] 03/07/2022 10:43:17 Date Recorded Body height Body mass index (BMI) Body weight Systolic blood pressure Diastolic blood pressure Provider Name and Address Organization Details Last Updated DateTime 03/25/2022 162.56 cm 55.6 kg/m2 445530.9 3 g 130 mm[Hg] 81 mm[Hg] Nettaallyson Spear [facility] 12:06:53 Social History Question Answer Notes LastModified by Organizat ion Details LastModified Time Tobacco Smoking Status Never Smoker [facility] 01/27/2022 09:44:16 Do You Have An Advance Directive? No Information n ot available 01/27/2022 Are You Blind Or Do You Have Difficulty Seeing? No Information n ot available 01/27/2022 What Is Your Level Of Caffeine Consumption? None Information not available 01/27/2022 How Much Tobacco Do You Chew? None Information not available 01/27/2022 In The 14 Days Before Symptom Onset, Have You Had Close Contact With A Laboratory-confirm ed COVID-19 While That Case Was Ill? No Information n ot available 01/27/2022 In The 14 Days Before Symptom Onset, Have You Had Close Contact With A Person Who Is Under Investigation For COVID-19 While That Person Was Ill? No Information not available 01/27/2022 Have You Been To An Area Known To Be High Risk For COVID-19? No Information not available 01/27/2022 Are You Deaf Or Do You Have Serious Difficulty Hearing? No Information not available 01/27/2022 What Type Of Diet Are You Following? REGULAR Information n ot available 01/27/2022 What Is The Highest Grade Or Level Of School You Have Completed Or The Highest Degree You Have Received? [id number] Information not available 01/27/2022 Are There Any Guns Present In Your Home? No Information not available 01/27/2022 Do You Use Protection During Sex? No Information not available 01/27/2022 Do You Use Your Seat Belt Or Car Seat Routinely? Yes Information not available 01/27/2022 Do You Have Smoke And Carbon Monoxide Detectors In Your Home? No Information not available 01/27/2022 How Much Tobacco Do You Smoke? No Information not available 01/27/2022 Do You Use Sunscreen Routinely? No Information not available 01/27/2022 Have You Used IV Drugs? No Information not available 01/27/2022 Do You Have Difficulty Walking Or Climbing Stairs? No Information not available 01/27/2022 Sex: Unknown Functional Status Question Answer Note LastModified by Organizat ion Details LastModified Time Do you use any illicit or recreational drugs? No Information not available 01/27/2022 What is your level of alcohol consumption? None Information not available 01/27/2022 Are you able to walk? YESWOREST Information not available 01/27/2022 Are you able to care for yourself? 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 No Information not available 01/27/2022 What is your exercise level? None Information not available 01/27/2022 Mental Status Question Answer Note LastModified by Organization D etails LastModified Time Do you feel stressed (tense, restless, nervous, or anxious, or unable to sleep at night)? [id number] [facility] Information not available 01/27/2022 Family History Relationship Description Onset Age of this Age Resolved Age Notes LastModified by Organization Details LastModified Time Mother Blood coagulation disorder [email or web address] Not available 04/07 15:07:50 Mother Hypertensive disorder Not available 04/07 15:08:18 Maternal Grandmother Hypertensive disorder [email or web address] Not available 04/07 15:08:31 Maternal Grandmother Hyperlipidem ia [email or web address] Not available 2021 09:27:15 Maternal Grandmother Diabetes mellitus [email or web address] Not available 04/07 15:08:56 Notes:Maternal grandmother: Diabetes mellitus, hyperlipidemia, Hypertension Mother: Hypertension, bleeding disorder Medical History Condition Response Allergies (Food, seasonal, environmental ) N Other N Blood Transfusion N Drug/Latex Allergies/Reactions N Breast Cancer N Dermatologic Disorders N Lung Disease N Defects or Inherited Disease N Breast Problem N Gestational Diabetes N Hematologic disorders N Anesthesia Complications N History of STI N Deep Vein Thrombosis N Polycystic ovary syndrome N Anxiety Disorder N Autoimmune disease N Arthritis N Infertility N Polyps N Acid Reflux (GERD) N History of abnormal pap N Cancer N Stroke N Varicosities N Neurologic/Epilepsy N Endometriosis N High Cholesterol N Headaches N Fibromyalgia N Kidney Disease N Heart Problems N Kidney or Bladder Problems N Thyroid Problems N GI Problems N Eating Disorder N Anemia N Art (IVF or FET) N Psychiatric Illness N Ovarian Cancer N Diabetes N Pulmonary (TB, Asthma) N Hepatitis/Liver Disease N No Past Medical History N Eczema N Urinary Tract Infection N Abuse/Domestic Violence N Asthma N Trauma/Violence N Depression/ depression N Heart Disease N Pre-Eclampsia N Hypertension N Osteoporosis N Thrombophilias N Gynecological History Statement/Question Response Flow Moderate Date of LMP 11/29/2021 On BCP's at Conception? N N Was last menstrual period normal N STIs/STDs Y HPV Vaccine N Current Control Method Tubal Ligat ion Age at First Child 20 Are cycles usually normal N Frequency of Cycle (Q days) 62 Sexually Active? Y Age of first menstrual cycle 17 Date of Last Pap Smear Sexual Problems? Y LMP Approximate N Obstetrics History GPAL:G 3 P 3 0 0 3 Type Value Full Term 3 Living 3 Total 3 Past Encounters Encounter ID Performer Location Encounter Start Date Encounter Closed Date Diagnosis/Indication Diagnosis SNOMED-CT Code Diagnosis ICD10 Code Diagnosis Note [id number] PATRICIA Davila [place] [address],[facility] [address] 01/27/2022 09:26:37 01/27/2022 13:33:58 Abnormal uterine bleeding [id number] 9100 N93.9 Labs orderedSTI endocervic al testing sentPelvic u/s orderedRTC for pelvic u/s and EMB for further evaluation of EMB. Will do pap at EMB visit.We discussed options to help control this current episode of bleeding. Will start prometrium daily for 30 days. She does not desire BC methods to help with AUB (IUD, OCP, etc). She would like to discuss surgical interventi on. Will schedule MD consult following u/s and EMB.ED precaution s discussed - heavy vaginal bleeding (saturatin g a pad faster than 30 minutes - 1 hour), pelvic pain, etc.Encour aged a daily iron supplement R/B of medication discussed Venereal d isease screening 719339179 Z11.3 Sexually t ransmitted infectious disease 3733699 A64 [id number] Art Silva MD [place] [address],[facility] [address] 02/04/2022 16:26:57 02/08/2022 13:10:24 Abnormal uterine bleeding [id number] 9100 N93.9 [id number] PATRICIA Davila [place] [address],[place] [address] 03/07/2022 10:35:40 03/07/2022 17:11:55 Anemia 980376856 D64.9 CBC with hgb of 9 at [facility] did not return for iron studies - has not been taking oral iron that was prescribed No longer having vaginal bleedingDe nies symptoms of anemia currentlyS TCBC and iron studies ordered, she will have them done todayEncou raged patient to take iron as prescribed She would like to see a hematologi st for consult - referral sentWill update patient with results when available Abnormal u terine bleeding [id number] 9100 N93.9 EMB performed without any immediate complicati onsED precaution s discussedM D f/u scheduled with Dr. Silva at [facility] Venereal d isease screening 921756795 Z11.3 STI urine sent Time spent in visit is a total of 20 mins with at least 50% of visit consisting of counseling and review of plan of care. [id number] Art Silva MD [place] [address] [address] 03/25/2022 11:37:27 03/25/2022 14:45:59 Menorrhagia 287024253 N92.0 this patient is a 36-year-ol d female with severe menorrhagi a. She has anemia. We talked about treatment options. We spent over 20 minutes face-to-fa ce. More than 50% was counseling . Talked about hormonal contracept ion, pills, patches, vaginal ring, Depo, Nexplanon, Mirena. Talked about endometria l ablation. We briefly mentioned hysterecto my. We agreed to start with Mirena. We did review ablation in detail. We will do ablation Mirena fails. Health Concerns Section Related Observation LastModified by Organization Detai ls LastModified Time None Recorded Concern Status LastModified by Organization Details LastModified Time None Recorded Advance Directives Directive N: Payers Encounter Date Sequence Insurance Name Policy Number Policy Marte Covered Member ID Marte Member ID Guarantor Name 01/27/2022 1 [employer] [employer] (MEDICARE REPLACEMENT/ ADVANTAGE - HMO) Malaika Newton [id number] Malaika Newton 02/04/2022 1 [employer] (MEDICARE REPLACEMENT/ ADVANTAGE - HMO) Malaika Newton [id number] Malaika Newton 03/07/2022 1 [employer] [employer] (MEDICARE REPLACEMENT/ ADVANTAGE - HMO) Malaika Newton [id number] Malaika Newton 03/25/2022 1 [employer] [employer] (MEDICARE REPLACEMENT/ ADVANTAGE - HMO) Malaika Newton [id number] Malaika Newton Notes Date Note Type Note Provider Name and Address Organization Details Recorded Time 01/27/2022 text/html 36yo [id number] for evaluation of abnormal uterine bleeding. Patient states her period started on 11/29/2021 and she has been bleeding since. She has not had any days of no bleeding. She goes through 2 pads per day with clots. She is feeling easily fatigued.Previous to this episode periods were irregular. She would often skip months, very unpredictable. Has been like that her whole life.BTL for BC, SA with steady male partnerNo hx of abnormal paps per patientLast pap around 2018SHe denies any symptoms of pelvic pain or vaginal symptoms PATRICIA Davila [address], [place], [address], [facility] 01/27/2022 12:56:16 03/07/2022 text/html Presents for EMB for further evaluation of [id number] for evaluation of abnormal uterine bleeding. Patient states her period started on 11/29/2021 and had bleeding for 2 months, she is currently having no bleeding. She took the prometrium for about 4 days and then stopped taking itPrevious to this episode periods were irregular. She would often skip months, very unpredictable. Has been like that her whole life.BTL for BC, SA with steady male partnerNo hx of abnormal paps per patientLast pap around 2018SHe denies any symptoms of pelvic pain or vaginal symptoms PATRICIA Davila [address], [place], [address], [facility] 03/07/2022 11:10:52 03/25/2022 text/html this patient is a 36-year-old female with severe menorrhagia. She has anemia. We talked about treatment options. We spent over 20 minutes [id number]. More than 50% was counseling. Talked about hormonal contraception, pills, patches, vaginal ring, Depo, Nexplanon, Mirena. Talked about endometrial ablation. We briefly mentioned hysterectomy. We agreed to start with Mirena. We did review ablation in detail. We will do ablation Mirena fails. Art Silva MD [address], [place], [address], [facility] 03/25/2022 12:31:14 OBGyn Episode Ob Episode Information Episode Created Date Number of Fetuses Patient Bloodtype Patient rh Status Prepregnancy Weight lbs Domestic Partner Domestic Partner Phone Father Name Director External Communications Status 04/07/20 20 1 CLOSED Fetus Data First Name Last Name Admitted to NICU Weight (g) Sex Living Outcome Pediatric Complications Fetus ID Race Codes Race Delivery Type M Full Term [id number] Repeat Sean Calculation Initial Sean Date Initial Exam Date Initial Exam Provider Initial Ultrasound Date Last Menstrual Period Date Ultra Sound Weeks Gestation 0 Eighteen To Twenty Week Sean Update Ultra Sound Date Fundal Height At Umbil Quickening Date Ultra Sound Latest Weeks Gestation Final Sean Confirmed By Final Sean Confirmed Date Final Sean Date Ultra Sound Latest Days Gestation 0 0 Menstrual History Last Menstrual Date Menses Monthly On Bcp Conception Prior Menses Frequency Hcg Plus Date Menarche Onset Age Delivery Information Delivery Date Delivery Type Labor Anesthesia Weeks Gestation Incision Type Labor Labor Length Hrs Delivered By Post Complications Tubal Sterilization Discharge Date Comments 5 Discharge Information Feeding Method Contraceptive Method Maternal HG B and HCT Levels Ob Episode Information Episode Created Date Number of Fetuses Patient Bloodtype Patient rh Status Prepregnancy Weight lbs Domestic Partner Domestic Partner Phone Father Name Director External Communications Status 04/07/20 20 1 CLOSED Fetus Data First Name Last Name Admitted to NICU Weight (g) Sex Living Outcome Pediatric Complications Fetus ID Race Codes Race Delivery Type Full Term [id number] Repeat Sean Calculation Initial Sean Date Initial Exam Date Initial Exam Provider Initial Ultrasound Date Last Menstrual Period Date Ultra Sound Weeks Gestation 0 Eighteen To Twenty Week Sean Update Ultra Sound Date Fundal Height At Umbil Quickening Date Ultra Sound Latest Weeks Gestation Final Sean Confirmed By Final Sean Confirmed Date Final Sean Date Ultra Sound Latest Days Gestation 0 0 Menstrual History Last Menstrual Date Menses Monthly On Bcp Conception Prior Menses Frequency Hcg Plus Date Menarche Onset Age Delivery Information Delivery Date Delivery Type Labor Anesthesia Weeks Gestation Incision Type Labor Labor Length Hrs Delivered By Post Complications Tubal Sterilization Discharge Date Comments 9 Discharge Information Feeding Method Contraceptive Method Maternal HG B and HCT Levels Ob Episode Information Episode Created Date Number of Fetuses Patient Bloodtype Patient rh Status Prepregnancy Weight lbs Domestic Partner Domestic Partner Phone Father Name Director External Communications Status 04/07/20 20 1 CLOSED Fetus Data First Name Last Name Admitted to NICU Weight (g) Sex Living Outcome Pediatric Complications Fetus ID Race Codes Race Delivery Type F Full Term [id number] Primary Sean Calculation Initial Sean Date Initial Exam Date Initial Exam Provider Initial Ultrasound Date Last Menstrual Period Date Ultra Sound Weeks Gestation 0 Eighteen To Twenty Week Sean Update Ultra Sound Date Fundal Height At Umbil Quickening Date Ultra Sound Latest Weeks Gestation Final Sean Confirmed By Final Sean Confirmed Date Final Sean Date Ultra Sound Latest Days Gestation 0 0 Menstrual History Last Menstrual Date Menses Monthly On Bcp Conception Prior Menses Frequency Hcg Plus Date Menarche Onset Age Delivery Information Delivery Date Delivery Type Labor Anesthesia Weeks Gestation Incision Type Labor Labor Length Hrs Delivered By Post Complications Tubal Sterilization Discharge Date Comments 6 Discharge Information Feeding Method Contraceptive Method Maternal HG B and HCT Levels
--- OUTSIDE RECORDS SUMMARY | 2024-09-21 23:54 | XMS_ITS | CONTINUITY OF CARE DOCUMENT ---
Author Name adwoa orona Address Unknown Organization [facility] Address [address] [place] [address] [address] [place] [address] Phone [phone] Care Team Providers Care Sys Dir Name Role Phone Evaristo Caballero MD Unavailable PADDY KNOWLES MD Unavailable [phone] PADDY KNOWLES MD Unavailable [phone] INSURANCE PROVIDERS Payer name Policy type / Coverage type [place] red libertarian [place] MED[place] (2) Medicaid [id number]
--- OUTSIDE RECORDS SUMMARY | 2024-09-21 23:54 | XMS_ITS | Clinical Summary ---
Author Organization [facility] Address [address] [place] [address] Care Team Providers Care Automobile Appraiser Name Role Phone Jaden Evans MD Primary Care Provider [phone] Kelly Womack HATCHERY EMPLOYEE Unavailable [phone] Allergies No known active allergies Medications No known medications Active Problems Problem Noted Date Diagnosed Date Abnormal serum thyroid stimulating hormone (TSH) level 05/20/2022 Assessment & Plan (05/20/2022 9:43 AM FOOD SERVICE CLERK): Patient without history of thyroid disease. She was found to have slightly high TSH of 6.0 on 01/27/22 Normal free T4 of 0.84 This could be subclinical hypothyroidism Plan: The abnormal lab reviewed and explained to patient. We will repeat TFT We will start thyroid hormone replacement therapy if TSH is lower indicating progression of the disease. Follow up and further recommendation will be decided after we obtain above test results. No diagnosis on [place] I 12/16/2020 Gastroesophageal reflux disease 05/11/2020 Overview (05/11/2020): Added automatically from request for surgery [id number] Delivery by section 11/04/2019 Herpes simplex 11/04/2019 Morbid obesity ([facility]/HCC) 11/04/2019 Trichomoniasis 11/04/2019 Surgical History Surgery Date Site/Laterality Comments SECTION SECTION 2005, 2008, 2014 Medical History Medical History Date Comments Morbid obesity (HCC) Family History Medical History Relation Name Comments Deep vein thrombosis Father Diabetes Father Deep vein thrombosis Mother Diabetes Mother Relation Name Status Comments Father Mother Social History Tobacco Use Types Packs/Day Years Used Date Smoking Tobacco: Former Cigarettes 0 12/11/2018 - 06/12/2019 Smokeless Tobacco: Never Tobacco Cessation:Counseling Given: Not Answered Alcohol Use Standard Drinks/Week Comments Yes 0 (1 standard drink = 0.6 oz pur e alcohol) Personal Safety Answer Date Recorded Have you ever been in or are you currently in a harmful physical or emotional relationship or is someone making you feel afraid or unsafe? 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 on file Not on file Obstetrics History Last Filed Vital Signs Vital Sign Reading Time Taken Comments Blood Pressure 140/87 12/23/2022 9:26 AM CDT Pulse 79 12/23/2022 9:26 AM CDT Temperature 36.6 C (97.9 F) 12/23/2022 9:26 AM CDT Respiratory Rate 22 12/23/2022 9:26 AM CDT Oxygen Saturation 100% 12/23/2022 9:26 AM CDT Inhaled Oxygen Concentration - - Weight 149.7 kg (330 lb) 12/23/2022 9:26 AM CDT Height 165.1 cm (5' 5) 12/23/2022 9:26 AM CDT Body Mass Index 54.91 12/23/2022 9:26 AM CDT Plan of Treatment Health Maintenance Due Date Last Done Comments Cervical Cancer Screening 1987 Depression Screening 1987 Hepatitis C Screening 1987 Varicella Vaccines (1 of 2 - 13+ 2-dose series) 10/28/2000 Regular Well Visit/Exam 18-64 10/28/2005 Covid-19 Vaccine (3 - season) 2023 02/15/2021, 01/25/2021 Influenza Vaccine (Season Ended) 2024 02/28/2017, 12/23/2015 DTaP/Tdap/Td Vaccine (8 - Td or Tdap) 02/04/2025 02/04/2015, 02/04/2015, 11/29/2001, Additional history exists Hepatitis B Screening Completed 01/27/2004 , 01/25/2002, 11/29/2001 HPV Vaccines Aged Out No longer eligi ble based on patient's age to complete this topic Pneumococcal vaccine <65 Aged Out No longer eligible based on patient's age to complete this topic [place] [address] [place] [address] [facility] [place] [address] [address] [facility] Care Teams Automobile Appraiser Relationship Specialty Start Date End Date Jaden Evans MD PCP - General Emergency Medicine 09/26/19 Kelly Womack NP [address] [place] [address] 09/26/19
--- OUTSIDE RECORDS SUMMARY | 2024-09-21 23:54 | XMS_ITS | Data Portability ---
Author Organization [facility] , [facility] Address [address] [place] [address] Assessment Encounter Date Assessment Date Assessment LastModified by Organization Details LastModified Time 03/05/2024 03/05/2024 Pt comes in with AUB. Pt reports she was seen by a previous LIP AND GATE BUILDER for this and work up WNL. Reports that she had blood work and TVUS. Will request records. They recommended starting control, pt declined. Reports she would have 40+ day cycles and then skip 2 months. Denies any PMH. --Discussed the various causes of abnormal uterine bleeding. Including: polyps, fibroids, hyperplasia, atypia, anovulation, etc. -- Discussed that diet, exercise, stress, weight gain/loss can also cause abnormal uterine bleeding. If AUB has been present for <3 months pt will continue to monitor and RTC for full work up if this continues. --Reviewed the typical evaluation with labs and TVUS if AUB has lasted >3 months. --Discussed the possibility of endometrial biopsy. Biopsy procedure reviewed in detail. --Recommended NSAID to help with cramping/bleed ing. --Briefly discussed the options available for treatment (depending on the results of evaluation) such as hormonal treatment (OCPs, progestins), Mirena, endometrial ablation, and surgery. Blood work in ER WNL. STI testing negative. TVUS in ER WNL- stripe 1.5 cm. Will get repeat to assess lining and possibility of EMB. ER sent medroxyprogest erone, bleeding has decreased. Will continue and start SLYND. Will follow up with repeat TVUS. [email or web address] Not available 03/05/2024 16:14:19 Plan of Treatment Reminders Order Date Submit Date Provider Last Modified By Organization Details Last Modified Time Details Appointments None recorded . Lab None recorded . Referral None recorded . Procedures None recorded . Surgeries None recorded . Imaging None recorded . Medication Orders Slynd 4 mg (28) tablet 024 03/05/20 24 [id number], [address], [place], [place], [phone], 4 16:13:01 Patient TargetsNo targets recorded. Patient InstructionsNo instructions recorded. Reason for Referral None Reported. Problems Name Problem SNOMED Code Status Onset Date Resolution Date Notes Provider Name and Address Organization Details Recorded Time Syphilis test finding 955301453 Completed 201710/17/2018 Encounte r for screenin g for infectio ns with a predomin antly sexual mode of transmis thomas; Progress : Stable Added By: Jennifer Thompson Add to Current Problems : NO ProblemS tatus: Resolve Not Available [facility] 2 21:51:57 Acute vaginiti s 32079502 Completed 201703/16/2018 Acute vaginiti s; Severity : Moderate Progress : Stable Added By: Parisa Burch Add to Current Problems : YES ProblemS tatus: Current Vaginiti s; Location : None Severity : Moderate Progress : Stable Added By: Fred Burnette Add to Current Problems : YES ProblemS tatus: Resolve Not Available [facility] 1 05:05:40 Sampling of vagina for Papanico laou smear Active 2018 Encounte r for gynecolo gical examinat ion (general ) (routine ) without abnormal findings ; Progress : Stable Added By: Marisol Thompson Add to Current Problems : YES ProblemS tatus: Current Not Available [facility] 2 21:51:57 Venereal disease screenin g Completed 201707/12/2018 Screenin g for STDs; Progress : Stable Added By: Jennifer Thompson Add to Current Problems : NO ProblemS tatus: Resolve Screenin g for STDs; Location : None Progress : Stable Added By: Jennifer Thompson Add to Current Problems : YES ProblemS tatus: Resolve Not Available [facility] 2 11:42:59 Acute vaginiti s 06301730 Active 2018 Acute vaginiti s; Progress : Stable Added By: Parisa Burch Add to Current Problems : YES ProblemS tatus: Current Vaginiti s; Location : None Progress : Stable Added By: Fred Burnette Add to Current Problems : YES ProblemS tatus: Resolve; Start Date : 01/16/20 18 Not Available [facility] 2 21:51:57 Problem Notes None recorded. Procedures Surgical History Date Name Laterality Status Provider Name and Address Organization Details Recorded Time 4 Date of [facility] 03/05/2024 15:44:11 C Section completed [facility] 03/05/2024 15:44:12 Imaging Results None recorded. Procedure Notes None recorded. Medical Equipment None Reported. Allergies No known drug allergies Medications Name Sig Start Date Stop Date Status Note LastModified by Organization Details LastModified Time medroxypr ogesteron e 10 mg tablet active Not Available Not Available Not Available Diflucan 150 mg tablet 1 p.o. now, repeat in 3 days 09/14 completed Diflucan 150mg Tablet RxNorm: 483490 Allow Substitu tion: True Refill Denied: No Not Available Not Available Not Available metronida zole 500 mg tablet 1 po bid for 7 days 03/16 completed Metronid azole 500mg Tablet Allow Substitu tion: True Refill Denied: No Not Available Not Available Not Available Metrogel Vaginal 0.75 % (37.5 mg/5 gram) 1 applicat or in vagina x 5 nights. 09/14 completed MetroGel 0.75% Vaginal Gel RxNorm: 899785 Allow Substitu tion: True Refill Denied: No Not Available Not Available Not Available Slynd 4 mg (28) tablet Take 1 tablet every day by oral route. active Not Available Not Available No t Available Vitals Date Recorded Body weight Body mass index (BMI) Body height Body temperature Systolic blood pressure Diastolic blood pressure Provider Name and Address Organization Details Last Updated DateTime 4 471317. 23 g 51.8 kg/m2 165.1 cm 97.2 [degF] 122 mm[Hg] 76 mm[Hg] Radha Hardwick [facility] 15:47:07 Social History Question Answer Notes LastModified by Organizat ion Details LastModified Time Tobacco Smoking Status Current Every Day Smoker Radha Hardwick null, [facility] 03/05/2024 15:44:12 If You Are , What Was Your Level Of Alcohol Consumption Prior To ? None [email or web address] Information not available 03/05/2024 Are You Blind Or Do You Have Difficulty Seeing? Yes [email or web address] Information not available 03/05/2024 Are You Deaf Or Do You Have Serious Difficulty Hearing? No [email or web address] Information not available 03/05/2024 What Type Of Diet Are You Following? REGULAR [email or web address] Information not available 03/05/2024 How Many Children Do You Have? 3 [email or web address] Information not available 03/05/2024 Are There Any Occupational Health Risks Where You Work? No [email or web address] Information not available 03/05/2024 What Is Your Relationship Status? Single [email or web address] Information not available 03/05/2024 Are You Sexually Active? Yes Information not available 03/05/2024 At What Age Did You Start Smoking Tobacco? 36 [email or web address] Information not available 03/05/2024 How Much Tobacco Do You Smoke? 2 PPW [email or web address] Information not available 03/05/2024 How Many Years Have You Smoked Tobacco? 2 Information not available 03/05/2024 Sex: Unknown Functional Status Question Answer Note LastModified by Organizat ion Details LastModified Time Do you use any illicit or recreational drugs? No [email or web address] Information not available 03/05/2024 What is your level of alcohol consumption? None [email or web address] Information not available 03/05/2024 Are you currently employed? Yes [email or web address] Information not available 03/05/2024 What is your exercise level? None [email or web address] Information not available 03/05/2024 Mental Status None recorded. Family History Relationship Description Onset Age of this Age Resolved Age Notes LastModified by Organization Details LastModified Time Mother Hypertensive disorder [email or web address] Not available 2023 15:44:11 Unspecified Relation Uterine leiomyoma [email or web address] Not available 2023 15:44:11 Medical History Condition Response Chicken Pox Y Gynecological History Statement/Question Response Flow Heavy Date of LMP 03/04/2024 Frequency of Cycle (Q days) Every stop Date of Last Pap Smear 02/28/2024 Duration of Flow (days) 30+ Current Control Method Tubal Ligat ion Age at Menarche 11 Obstetrics History GPAL:G 3 P 3 0 0 3 Type Value Full Term 3 Living 3 Total 3 Past Encounters Encounter ID Performer Location Encounter Start Date Encounter Closed Date Diagnosis/Indication Diagnosis SNOMED-CT Code Diagnosis ICD10 Code Diagnosis Note [id number] [facility] [address] [place] [address] 03/05/2024 15:37:38 03/05/2024 17:13:40 Abnormal uterine bleeding 6197359234 9100 N93.9 Contracept cynthia use education 10701393 Z30.09 Pt is a smoker, POP sent Health Concerns Section Related Observation LastModified by Organization Detai ls LastModified Time None Recorded Concern Status LastModified by Organization Details LastModified Time None Recorded Advance Directives Directive None Recorded Payers Insurance Date Sequence Insurance Name Policy Number Policy Marte Covered Member ID Marte Member ID Guarantor Name 03/05/2024 1 [facility] (MEDICARE REPLACEMENT/AD VANTAGE - HMO) Malaika Newton [id number] Malaika Newton 02/21/2024 1 [facility] (MEDICAID HMO) Malaika Newton [id number] Malaika Newton 03/05/2024 1 [place] Malaika Newton [id number] Malaika Newton 02/21/2024 1 [place] Malaika Newton [id number] Malaika Newton 03/06/2024 [facility] ON OR AFTER 10/15/20 (MEDICAID REPLACEMENT - HMO) Malaika Newton [id number] Malaika Newton 02/21/2024 1 [facility] ON OR AFTER 10/15/20 (MEDICAID REPLACEMENT - HMO) Malaika Newton [id number] Malaika Newton Notes Date Note Type Note Provider Name and Address Organization Details Recorded Time 03/05/2024 text/html Malaika is here because she been on her cycle for 5 months and will like to get on BC. She will like something to help regulate her period. She states she has been having heavy bleeding and severe cramping. She has no other concerns PATRICIA HARRISON- [address] [place], [address], [facility] IV 03/05/2024 16:14:45 OBGyn Episode No OBEpisode recorded.
--- OUTSIDE RECORDS SUMMARY | 2024-09-21 23:54 | XMS_ITS | Referral Summary ---
Author Organization [facility] Address [address] [place] [address] Care Team Providers Care Deputy Chief Counsel Name Role Phone Jaden Evans MD Primary Care Provider [phone] Kelly Womack CONCRETE SPREADER Unavailable [phone] Allergies No known active allergies Medications No known medications Active Problems Problem Noted Date Diagnosed Date Abnormal serum thyroid stimulating hormone (TSH) level 05/20/2022 Assessment & Plan (05/20/2022 9:43 AM HAIRSPRING I INSPECTOR): Patient without history of thyroid disease. She [...] obtain above test results. 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
--- OUTSIDE RECORDS SUMMARY | 2024-09-21 23:54 | XMS_ITS | Clinical Summary ---
Author Organization [facility] Address [address] [place] [address] Care Team Providers Care Candy Cutter Hand Name Role Phone Unavailable Primary Care Provider Unavailabl e Social History Tobacco Use Types Packs/Day Years Used Date Smoking Tobacco: Never Assessed Comments Unknown Sex and Gender Information Value Date Recorded Sex Assigned at Not on file Legal Sex Female 2:07 PM FISH PEDDLER Gender Identity Not on file Sexual Orientation Not on file Plan of Treatment Health Maintenance Due Date Last Done Comments Hepatitis C Virus (HCV) Screening 1987 Pap Smear 10/28/2008 Cervical Cancer Screening (CCS) 10/28/2017 HPV/Cotest 10/28/2017 Influenza Immunization (#1) 2023 SARS-COV-2 Immunization ( season) 2023 Respiratory Syncytial Virus (RSV) Immunization (Adult) (1 - 1-dose 75+ series) 10/28/2062 Hepatitis B Immunization Completed 004, 01/25/2002, 11/29/2001 DTaP/Tdap/Td Immunization Discontinued 2014, 11/29/2001, 11/20/1992, Additional history exists TdaP Immunization Completed 02/04/2015 Meningococcal Immunization (ACWY) Aged Out No longer eligible based on patient's age to complete this topic Pneumococcal Immunization Combined Aged Out No longer eligible based on patient's age to complete this topic Rotavirus Immunization Aged Out No lo nger eligible based on patient's age to complete this topic Insurance [employer] on file
--- OUTSIDE RECORDS SUMMARY | 2024-09-21 23:54 | XMS_ITS | Encounter Summary ---
Author Organization [facility] Address [address] [place] [address] Care Team Providers Care Manager Sports Name Role Phone Unavailable Primary Care Provider Unavailabl e Encounter Details Date Type Department Care Team (Late st Contact Info) Description 03/22/2022 Abstract [facility] Surgical Spec [place] [address] [place] [address] [place] [address] Swetha Palm MD [address] [place] [address] Social History Tobacco Use Types Packs/Day Years Used Date Smoking Tobacco: Never Assessed Comments Unknown Sex and Gender Information Value Date Recorded Sex Assigned at Not on file Legal Sex Female 1:31 PM CDT Gender Identity Not on file Sexual Orientation Not on file documented as of this encounter Plan of Treatment Not on file documented as of this encounter Visit Diagnoses Not on filedocumented in this encounter
--- OUTSIDE RECORDS SUMMARY | 2024-09-21 23:54 | XMS_ITS | Clinical Summary ---
Author Organization [facility] Address [address] [place] [address] Phone Care Team Providers Care Wringer And Setter Name Role Phone Unavailable Primary Care Provider Unavailabl e Medications No known medications Active Problems No known active problems Encounters Date Type Department Care Team Description 09/10/2024 External Device Data STL ABSTRACTION Provider, Abstract 09/05/2024 External Device Data STL ABSTRACTION Provider, Abstract 09/04/2024 External Device Data STL ABSTRACTION Provider, Abstract 07/30/2024 External Device Data STL ABSTRACTION Provider, Abstract 07/03/2024 External Device Data STL ABSTRACTION Provider, Abstract 07/03/2024 External Device Data STL ABSTRACTION Provider, Abstract 06/22/2024 External Device Data STL ABSTRACTION Provider, Abstract 06/22/2024 External Device Data STL ABSTRACTION Provider, Abstract from Last 3 Months Immunizations Immunization Administration Dates Next Due Influenza Seasonal Unspecified Formulation IM Influenza Vaccine Quad Split 3+ Yrs Im 6 Social History Tobacco Use Types Packs/Day Years Used Date Smoking Tobacco: Never Tobacco Cessation:Counseling Given: Not Answered [...] Sign Reading Time Taken Comments Blood Pressure 130/86 04/27/2022 1:35 PM TITRATOR Pulse - - Temperature - - Respiratory Rate - - Oxygen Saturation - - Inhaled Oxygen Concentration - - Weight 138.3 kg (305 lb) 10/09/2023 9:40 AM CDT Height 162.6 cm (5' 4) 10/09/2023 9:40 AM CDT Body Mass Index 52.35 10/09/2023 9:40 AM CDT Plan of Treatment Health Maintenance Due Date Last Done Comments Pre-Diabetes and Diabetes Screening 1987 DTAP/TDAP/TD VACCINES (1 - Tdap) 10/28/2006 HEPATITIS B VACCINES (1 of 3 - 19+ 3-dose series) 10/28/2006 HPV/Cotest (21-29) 10/28/2008 HPV/Cotest (30-65) 10/28/2017 INFLUENZA VACCINE (#1) 2023 7, 12/23/2015 CERVICAL CANCER SCREENING 03/07/2025 PAP SMEAR 03/07/2025 03/07/2022 HPV VACCINES Aged Out No longer eligi ble based on patient's age to complete this topic Insurance [facility] MEDICAID
--- OUTSIDE RECORDS SUMMARY | 2024-09-21 23:54 | XMS_ITS | Encounter Summary ---
Author Organization [facility] Address [address] [place] [address] Care Team Providers Care [employer] Web Developer Name Role Phone Unavailable Primary Care Provider Unavailabl e Reason for Visit * Reason Onset Date Comments Nurse Only 04/25/2024 Encounter Details Date Type Department Care Team (Late st Contact Info) Description 04/25/2024 Telephone [facility] - Centralized Scheduling [address] [place] [id number] Jessica Gonzalez MD [address] [place] [address] Nurse Only Social History Tobacco Use Types Packs/Day Years Used Date Smoking Tobacco: Former Cigarettes Q uit: 06/12/2019 Smokeless Tobacco: Never Alcohol Use Standard Drinks/Week Comments Never 0 (1 standard drink = 0.6 oz pur e alcohol) Comments No Sex and Gender Information Value Date Recorded Sex Assigned at Not on file Legal Sex Female 11:27 AM POLYTECHNIC TEACHER Gender Identity Not on file Sexual Orientation Not on file documented as of this encounter Miscellaneous Notes * Telephone Encounter - Tricia Lewis - 04/25/2024 1:57 PM CST Current Provider: Lisa Reason for Call: Pt calling b/c she was here on 04/05 and got the nexplanon inserted. She is still bleeding everyday and feels like it is even worse at times. Her anxiety is getting high b/c of it. She would like to discuss what else she can do. Please assist, thank you! Patient Call Back Number: [phone] TECHNIC TEACHER documented in this encounter Plan of Treatment Not on file documented as of this encounter Visit Diagnoses Not on filedocumented in this encounter
--- OUTSIDE RECORDS SUMMARY | 2024-09-21 23:55 | XMS_ITS | Data Portability ---
Author Organization [facility] Cheyanne KAY Address [address] [place] [address] Assessment Encounter Date Assessment Date Assessment LastModified by Organization Details LastModified Time 02/19/2015 02/19/2015 P OP wk #2 healing very well - dermabond removed. [email or web address] Not available 02/19/2015 14:52:25 Plan of Treatment Reminders Order Date Submit Date Provider Last Modified By Organization Details Last Modified Time Details Appointments None record ed. Lab tb (M tuberc ulosis ), ifn-ga mma valerie, blood 2020 021 DON[facility], [facility], [place], [address], 1 06:12:17 urinal ysis, dipsti ck 2014 015 DONAVAN In-Office Order, Internal Use Only DO Not Attach Compendium DO Not Attach Compendium, Do Not Delete/merge, [id number] 5 13:46:22 strept ococcu s group B, cultur e, unspec ified specim en 2014 015 [place] [facility], [address] [facility], [place], [address], 5 18:52:23 urinal ysis, dipsti ck 2014 015 [email or web address] In-Office Order, Internal Use Only DO Not Attach Compendium DO Not Attach Compendium, Do Not Delete/merge, [id number] 5 13:10:02 urinal ysis, dipsti ck 2014 015 [email or web address] In-Office Order, Internal Use Only DO Not Attach Compendium DO Not Attach Compendium, Do Not Delete/merge, [id number] 5 14:41:30 Referral None record ed. Procedures None record ed. Surgeries None record ed. Imaging None record ed. Medication Orders None record ed. Patient TargetsNo targets recorded. Patient Instructions Encounter Date Encounter Id Patient Instructions Last Modified By Organization Details Last Modified Time 02/05/2021 [id number] learning about tuberculosis (TB) [email or web address] Not available 02/05/2021 10:33:38 Reason for Referral None Reported. Results Created Date Observation Date Name Description Value Unit Range Abnormal Flag Note LastModifiedBy Organization Detail LastModifiedTime 01/28/2001/27/2015 urina lysis , dipst ick Leukocytes Modera te Not Available In-Office Order Internal Use Only DO Not Attach Compendium DO Not Attach Compendium, Do Not Delete/merge, [id number] 01/27/2015 11:46:56 01/28/2001/27/2015 urina lysis , dipst ick Nitrite negati ve Not Available In-Office Order Internal Use Only DO Not Attach Compendium DO Not Attach Compendium, Do Not Delete/merge, [id number] 01/27/2015 11:46:56 01/28/20 15 01/27/2015 urina lysis , dipst ick Urobilinogen 1 Not Available In-Of fice Order Internal Use Only DO Not Attach Compendium DO Not Attach Compendium, Do Not Delete/merge, [id number] 01/27/2015 11:46:56 01/28/20 15 01/27/2015 urina lysis , dipst ick Protein 30 Not Available In-Office Order Internal Use Only DO Not Attach Compendium DO Not Attach Compendium, Do Not Delete/merge, [id number] 01/27/2015 11:46:56 01/28/20 15 01/27/2015 urina lysis , dipst ick pH 6.5 Not Available In-Office Order Internal Use Only DO Not Attach Compendium DO Not Attach Compendium, Do Not Delete/merge, [id number] 01/27/2015 11:46:56 01/28/20 15 01/27/2015 urina lysis , dipst ick Blood Negati ve Not Available In-Office Order Internal Use Only DO Not Attach Compendium DO Not Attach Compendium, Do Not Delete/merge, 01/27/2015 11:46:56 01/28/20 15 01/27/2015 urina lysis , dipst ick Specific Half Way 1.020 Not Available In-Off ice Order Internal Use Only DO Not Attach Compendium DO Not Attach Compendium, Do Not Delete/merge, 01/27/2015 11:46:56 01/28/20 15 01/27/2015 urina lysis , dipst ick Ketone Negati ve Not Available In-Office Order Internal Use Only DO Not Attach Compendium DO Not Attach Compendium, Do Not Delete/merge, 01/27/2015 11:46:56 01/28/20 15 01/27/2015 urina lysis , dipst ick Bilirubin Negati ve Not Available In-Office Order Internal Use Only DO Not Attach Compendium DO Not Attach Compendium, Do Not Delete/merge, 01/27/2015 11:46:56 01/28/20 15 01/27/2015 urina lysis , dipst ick Glucose Negati ve Not Available In-Office Order Internal Use Only DO Not Attach Compendium DO Not Attach Compendium, Do Not Delete/merge, 01/27/2015 11:46:56 01/10/20 15 01/09/2015 urina lysis , dipst ick Leukocytes Small Not Available In-Offi ce Order Internal Use Only DO Not Attach Compendium DO Not Attach Compendium, Do Not Delete/merge, [id number] 01/09/2015 12:07:41 01/10/20 15 01/09/2015 urina lysis , dipst ick Nitrite negati ve Not Available In-Office Order Internal Use Only DO Not Attach Compendium DO Not Attach Compendium, Do Not Delete/merge, [id number] 01/09/2015 12:07:41 01/10/20 15 01/09/2015 urina lysis , dipst ick Urobilinogen 1 Not Available In-Of fice Order Internal Use Only DO Not Attach Compendium DO Not Attach Compendium, Do Not Delete/merge, 01/09/2015 12:07:41 01/10/20 15 01/09/2015 urina lysis , dipst ick Protein 30 Not Available In-Office Order Internal Use Only DO Not Attach Compendium DO Not Attach Compendium, Do Not Delete/merge, 01/09/2015 12:07:41 01/10/20 15 01/09/2015 urina lysis , dipst ick pH 7.0 Not Available In-Office Order Internal Use Only DO Not Attach Compendium DO Not Attach Compendium, Do Not Delete/merge, 01/09/2015 12:07:41 01/10/20 15 01/09/2015 urina lysis , dipst ick Blood Negati ve Not Available In-Office Order Internal Use Only DO Not Attach Compendium DO Not Attach Compendium, Do Not Delete/merge, 01/09/2015 12:07:41 01/10/20 15 01/09/2015 urina lysis , dipst ick Specific Half Way 1.025 Not Available In-Off ice Order Internal Use Only DO Not Attach Compendium DO Not Attach Compendium, Do Not Delete/merge, 01/09/2015 12:07:41 01/10/20 15 01/09/2015 urina lysis , dipst ick Ketone Modera te Not Available In-Office Order Internal Use Only DO Not Attach Compendium DO Not Attach Compendium, Do Not Delete/merge, 01/09/2015 12:07:41 01/10/20 15 01/09/2015 urina lysis , dipst ick Bilirubin Negati ve Not Available In-Office Order Internal Use Only DO Not Attach Compendium DO Not Attach Compendium, Do Not Delete/merge, 01/09/2015 12:07:41 01/10/20 15 01/09/2015 urina lysis , dipst ick Glucose Negati ve Not Available In-Office Order Internal Use Only DO Not Attach Compendium DO Not Attach Compendium, Do Not Delete/merge, 01/09/2015 12:07:41 01/02/20 15 01/01/2015 urina lysis , dipst ick Leukocytes Small Not Available In-Offi ce Order Internal Use Only DO Not Attach Compendium DO Not Attach Compendium, Do Not Delete/merge, 01/01/2015 13:10:44 01/02/2001/01/2015 urina lysis , dipst ick Nitrite negati ve Not Available In-Office Order Internal Use Only DO Not Attach Compendium DO Not Attach Compendium, Do Not Delete/merge, 01/01/2015 13:10:44 01/02/2001/01/2015 urina lysis , dipst ick Urobilinogen 1 Not Available In-Of fice Order Internal Use Only DO Not Attach Compendium DO Not Attach Compendium, Do Not Delete/merge, 01/01/2015 13:10:44 01/02/2001/01/2015 urina lysis , dipst ick Protein 30 Not Available In-Office Order Internal Use Only DO Not Attach Compendium DO Not Attach Compendium, Do Not Delete/merge, 01/01/2015 13:10:44 01/02/2001/01/2015 urina lysis , dipst ick pH 7.0 Not Available In-Office Order Internal Use Only DO Not Attach Compendium DO Not Attach Compendium, Do Not Delete/merge, 01/01/2015 13:10:44 01/02/2001/01/2015 urina lysis , dipst ick Blood Negati ve Not Available In-Office Order Internal Use Only DO Not Attach Compendium DO Not Attach Compendium, Do Not Delete/merge, 01/01/2015 13:10:44 01/02/2001/01/2015 urina lysis , dipst ick Specific Half Way 1.025 Not Available In-Off ice Order Internal Use Only DO Not Attach Compendium DO Not Attach Compendium, Do Not Delete/merge, 01/01/2015 13:10:44 01/02/2001/01/2015 urina lysis , dipst ick Ketone Large (80) Not Available In-Office Order Internal Use Only DO Not Attach Compendium DO Not Attach Compendium, Do Not Delete/merge, 01/01/2015 13:10:44 01/02/2001/01/2015 urina lysis , dipst ick Bilirubin Negati ve Not Available In-Office Order Internal Use Only DO Not Attach Compendium DO Not Attach Compendium, Do Not Delete/merge, 01/01/2015 13:10:44 01/02/2001/01/2015 urina lysis , dipst ick Glucose Negati ve Not Available In-Office Order Internal Use Only DO Not Attach Compendium DO Not Attach Compendium, Do Not Delete/merge, 01/01/2015 13:10:44 01/02/2001/01/2015 urina lysis , dipst ick Appearance Clear Not Available In-Offi ce Order Internal Use Only DO Not Attach Compendium DO Not Attach Compendium, Do Not Delete/merge, 01/01/2015 13:10:44 01/02/2001/01/2015 urina lysis , dipst ick Color Dark Yellow Not Available In-Office Order Internal Use Only DO Not Attach Compendium DO Not Attach Compendium, Do Not Delete/merge, 01/01/2015 13:10:44 12/16/1912/15/2014 urina lysis , dipst ick Leukocytes Small Not Available In-Offi ce Order Internal Use Only DO Not Attach Compendium DO Not Attach Compendium, Do Not Delete/merge, 12/15/2014 17:46:04 12/16/1912/15/2014 urina lysis , dipst ick Nitrite negati ve Not Available In-Office Order Internal Use Only DO Not Attach Compendium DO Not Attach Compendium, Do Not Delete/merge, 12/15/2014 17:46:04 12/16/1912/15/2014 urina lysis , dipst ick Urobilinogen .2 Not Available In-Of fice Order Internal Use Only DO Not Attach Compendium DO Not Attach Compendium, Do Not Delete/merge, 12/15/2014 17:46:04 12/16/1912/15/2014 urina lysis , dipst ick Protein Negati ve Not Available In-Office Order Internal Use Only DO Not Attach Compendium DO Not Attach Compendium, Do Not Delete/merge, 12/15/2014 17:46:04 12/16/1912/15/2014 urina lysis , dipst ick pH 7.0 Not Available In-Office Order Internal Use Only DO Not Attach Compendium DO Not Attach Compendium, Do Not Delete/merge, 12/15/2014 17:46:04 12/16/1912/15/2014 urina lysis , dipst ick Blood Negati ve Not Available In-Office Order Internal Use Only DO Not Attach Compendium DO Not Attach Compendium, Do Not Delete/merge, 12/15/2014 17:46:04 12/16/1912/15/2014 urina lysis , dipst ick Specific Half Way 1.020 Not Available In-Off ice Order Internal Use Only DO Not Attach Compendium DO Not Attach Compendium, Do Not Delete/merge, 12/15/2014 17:46:04 12/16/19 15 12/15/2014 urina lysis , dipst ick Ketone Negati ve Not Available In-Office Order Internal Use Only DO Not Attach Compendium DO Not Attach Compendium, Do Not Delete/merge, 12/15/2014 17:46:04 12/16/19 15 12/15/2014 urina lysis , dipst ick Bilirubin Negati ve Not Available In-Office Order Internal Use Only DO Not Attach Compendium DO Not Attach Compendium, Do Not Delete/merge, 12/15/2014 17:46:04 12/16/19 15 12/15/2014 urina lysis , dipst ick Glucose Negati ve Not Available In-Office Order Internal Use Only DO Not Attach Compendium DO Not Attach Compendium, Do Not Delete/merge, 12/15/2014 17:46:04 12/04/1912/03/2014 urina lysis , dipst ick Leukocytes Small Not Available In-Offi ce Order Internal Use Only DO Not Attach Compendium DO Not Attach Compendium, Do Not Delete/merge, 12/03/2014 11:28:35 12/04/1912/03/2014 urina lysis , dipst ick Nitrite negati ve Not Available In-Office Order Internal Use Only DO Not Attach Compendium DO Not Attach Compendium, Do Not Delete/merge, 12/03/2014 11:28:35 12/04/1912/03/2014 urina lysis , dipst ick Urobilinogen 1 Not Available In-Of fice Order Internal Use Only DO Not Attach Compendium DO Not Attach Compendium, Do Not Delete/merge, 12/03/2014 11:28:35 12/04/1912/03/2014 urina lysis , dipst ick Protein 30 Not Available In-Office Order Internal Use Only DO Not Attach Compendium DO Not Attach Compendium, Do Not Delete/merge, 12/03/2014 11:28:35 12/04/1912/03/2014 urina lysis , dipst ick pH 7.0 Not Available In-Office Order Internal Use Only DO Not Attach Compendium DO Not Attach Compendium, Do Not Delete/merge, 12/03/2014 11:28:35 12/04/1912/03/2014 urina lysis , dipst ick Blood Non-He molyze d: Trace Not Available In-Office Order Internal Use Only DO Not Attach Compendium DO Not Attach Compendium, Do Not Delete/merge, 12/03/2014 11:28:35 12/04/1912/03/2014 urina lysis , dipst ick Specific Half Way 1.020 Not Available In-Off ice Order Internal Use Only DO Not Attach Compendium DO Not Attach Compendium, Do Not Delete/merge, 12/03/2014 11:28:35 12/04/1912/03/2014 urina lysis , dipst ick Ketone Trace Not Available In-Office Order Internal Use Only DO Not Attach Compendium DO Not Attach Compendium, Do Not Delete/merge, 12/03/2014 11:28:35 12/04/1912/03/2014 urina lysis , dipst ick Bilirubin Negati ve Not Available In-Office Order Internal Use Only DO Not Attach Compendium DO Not Attach Compendium, Do Not Delete/merge, 12/03/2014 11:28:35 12/04/1912/03/2014 urina lysis , dipst ick Glucose Negati ve Not Available In-Office Order Internal Use Only DO Not Attach Compendium DO Not Attach Compendium, Do Not Delete/merge, [id number] 12/03/2014 11:28:35 12/04/19 15 12/03/2014 urina lysis , dipst ick Appearance Clear Not Available In-Offi ce Order Internal Use Only DO Not Attach Compendium DO Not Attach Compendium, Do Not Delete/merge, [id number] 12/03/2014 11:28:35 12/04/19 15 12/03/2014 urina lysis , dipst ick Color Yellow Not Available In-Office Order Internal Use Only DO Not Attach Compendium DO Not Attach Compendium, Do Not Delete/merge, [id number] 12/03/2014 11:28:35 02/06/2002/06/2021 QUANT IFERO N-TB GOLD PLUS quantiferon incubation Incuba tion perfor med. Not Available [facility] ([facility]) [address] [place], [address], 02/12/2021 06:12:17 02/06/2002/06/2021 QUANT IFERO N-TB GOLD PLUS quantiferon criteria Commen t The Quant iFERO N-TB Gold Plus resul t is deter mined by subtr actin g the Nil value from eithe r TB antig en (Ag) tube. The mitog en tube serve s as a contr ol for the test. Not Available [facility] ([facility]) [address] [place], [address], 02/12/2021 06:12:17 02/06/2002/11/2021 QUANT IFERO N-TB GOLD PLUS quantiferon TB1 Ag value 0.01 IU/mL Not Available [facility] ([facility]) [address] [place], [address], 02/12/2021 06:12:17 02/06/2002/11/2021 QUANT IFERO N-TB GOLD PLUS quantiferon TB2 Ag value 0.04 IU/mL Not Available [facility] ([facility]) [address] [place], [address], 02/12/2021 06:12:17 02/06/20 21 02/11/2021 QUANT IFERO N-TB GOLD PLUS quantiferon nil value 0.02 IU/mL Not Available [facility] ([facility]) [address] [place], [address], 02/12/2021 06:12:17 02/06/20 21 02/11/2021 QUANT IFERO N-TB GOLD PLUS quantiferon mitogen value >10.00 IU/mL Not Available [facility] ([facility]) [address] [place], [address], 02/12/2021 06:12:17 02/06/20 21 02/11/2021 QUANT IFERO N-TB GOLD PLUS quantiferon- TB gold plus Negati ve negati ve Chemi lumin escen ce immun oassa y metho dolog y Not Available [facility] ([facility]) [address] [facility], [place], [address], 02/12/2021 06:12:17 12/11/19 15 12/10/2014 ultra sound , surve y, OB mater nal eval No observ ation record ed. [email or web address] [facility] (Lab) [address] [place], [address], 12/10/2014 16:09:31 12/13/19 15 12/10/2014 imagi ng/di agnos tic resul t No observ ation record ed. [email or web address] [facility] (Rad) [address] [place], [address], 12/12/2014 12:02:02 Result Notes None recorded. Problems Name Problem SNOMED Code Status Onset Date Resolution Date Notes Provider Name and Address Organization Details Recorded Time Deliveri es by [id number] Active Robina patel 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 Procedures Surgical History Date Name Laterality Status Provider Name and Address Organization Details Recorded Time 5 Date of Last Pap Smear completed Tricia Richardson [facility] 07/17/2014 10:13:53 9 Caesarean Section completed Marisol Howell MA [facility] 07/11/2014 10:29:16 6 Caesarean Section completed Marisol Howell [place] [facility] 07/11/2014 10:29:16 Imaging Results None recorded. Procedure Notes None recorded. Medical Equipment None Reported. Allergies No known drug allergies Medications Name Sig Start Date Stop Date Status Note LastModified by Organization Details LastModified Time ruby figueroa tab 500mgnaprox en dr 07/11 completed Not Available Not Available Not Available baclofen tab 10mgbaclofe n 07/11 completed Not Available Not Available Not Available smz/tmp ds tab 800-160sulf amethoxazol e/trimethop rim ds 07/11 completed Not Available Not Available Not Available metronidazo l tab 500mgmetron idazole active Not Available Not Available Not Available amoxicillin cap 500mgamoxic illin 07/11 completed Not Available Not Available Not Available hydroco/apa p tab 5-325mghydr ocodone/dom taminophen 07/11 completed Not Available Not Available Not Available cyclobenzap rine 10 mg tablet active Not Available Not Available Not Available fluconazole 150 mg tablet active Not Available Not Available Not Available hydrocodone 5 mg-acetamin ophen 325 mg tablet active Not Available Not Available No t Available metronidazo le 0.75 % (37.5 mg/5 gram) vaginal gel active Not Available Not Available Not Available metronidazo le 500 mg tablet Take 1 tablet twice a day by oral route for 2 days. active Not Available Not Available No t Available acyclovir 800 mg tablet Take 1 tablet twice a day by oral route for 30 days. active Not Available Not Available No t Available Vitamin tablet Take 1 tablet every day by oral route. 2014 active Not Available Not Available Not Avai lable docusate sodium 100 mg capsule TAKE ONE CAPSULE BY MOUTH DAILY NEEDED active Not Available Not Available No t Available ergocalcife rol (vitamin D2) 1,250 mcg (50,000 unit) capsule TAKE ONE CAPSULE BY MOUTH WEEKLY active Not Available Not Available No t Available naproxen 500 mg tablet TAKE 1 TABLET BY MOUTH TWICE DAILY WITH FOOD active Not Available Not Available No t Available RhoGAM Ultra-Filte red PLUS 1,500 unit (300 mcg) intramuscul ar syringe Inject 300 microgram s by intramusc ular route. 2014 active Not Available Not Available Not Avai lable Vitals Date Recorded Body height Body mass index (BMI) Body weight Systolic blood pressure Diastolic blood pressure Provider Name and Address Organization Details Last Updated DateTime 01/01/2015 165.1 cm 45.1 kg/m2 506484.8 1966 g 110 mm[Hg] 76 mm[Hg] Gabrielle Alvarez MA [facility] 5 13:10:44 Date Recorded Body height Body mass index (BMI) Body weight Systolic blood pressure Diastolic blood pressure Provider Name and Address Organization Details Last Updated DateTime 01/09/2015 165.1 cm 45.9 kg/m2 588081.6 33443 g 118 mm[Hg] 62 mm[Hg] Raquel Gomez [facility] 5 12:27:35 Date Recorded Body height Body mass index (BMI) Body weight Systolic blood pressure Diastolic blood pressure Provider Name and Address Organization Details Last Updated DateTime 01/27/2015 165.1 cm 45.3 kg/m2 121815.5 75150 g 122 mm[Hg] 80 mm[Hg] Raquel Gomez [facility] 5 11:51:20 Date Recorded Body height Body mass index (BMI) Body weight Body temperature Heart rate Oxygen saturation Oxygen saturation in Arterial blood by Pulse oximetry Systolic blood pressure Diastolic blood pressure Provider Name and Address Organization Details Last Updated DateTime 1 160.02 cm 55.4 kg/m2 479753. 41 g 98 [degF] 78 /min 98 % 98 % 124 mm[Hg] 72 mm[Hg] Shanice Odonnell MA [facility] 1 10:30:02 Date Recorded Body height Body mass index (BMI) Body weight Systolic blood pressure Diastolic blood pressure Provider Name and Address Organization Details Last Updated DateTime 02/19/2015 165.1 cm 41.8 kg/m2 246956.8 72868 g 110 mm[Hg] 72 mm[Hg] Raquel Gomez [facility] 5 11:10:05 Social History Question Answer Notes LastModified by Organizat ion Details LastModified Time Tobacco Smoking Status Never Smoker Marisol Howell MA [facility], [facility] 07/11/2014 10:29:17 Do You Have An Advance Directive? No Information not available 07/11/2014 If You Are , What Was Your Level Of Alcohol Consumption Prior To ? None Information not available 07/11/2014 Is Anesthesia Consult Planned? Yes Information not available 07/11/2014 Are You Blind Or Do You Have Difficulty Seeing? No Information not available 01/01/2015 Is Blood Transfusion Acceptable In An Emergency? Yes Information not available 07/11/2014 What Is Your Level Of Caffeine Consumption? Occasional Information not available 07/11/2014 Live With Cats/exposure To Cat Litter No Information not available 07/11/2014 How Much Tobacco Do You Chew? None Information not available 07/11/2014 Are You Deaf Or Do You Have Serious Difficulty Hearing? No Information not available 01/01/2015 What Type Of Diet Are You Following? REGULAR Information not available 07/11/2014 Which Illicit Or Recreational Drugs Have You Used? None Information not available 01/01/2015 Education 12 Information no t available 07/11/2014 Have There Been Any Changes To Your Family Or Social Situation? No Information no t available 07/11/2014 Frequent Air Travel No Information not available 07/11/2014 Illicit Drugs Pre- None Information not available 01/01/2015 Live Alone Or With Others? With Others Information not available 07/11/2014 Marital Status Single Informatio n not available 07/11/2014 What Was The Date Of Your Most Recent Tobacco Screening? 02/05/2021 [email or web address] Information not available 02/05/2021 How Many Children Do You Have? 2 Information not available 07/11/2014 Performs Monthly Self-breast Exam? No [email or web address] Information no t available 01/09/2015 Do You Use Protection During Sex? No [email or web address] Information not available 01/09/2015 What Is Your Relationship Status? Single Information not available 01/09/2015 Seat Belts Used Routinely Yes Information not available 07/11/2014 Are You Sexually Active? Yes Information not available 07/11/2014 Do You Have Smoke And Carbon Monoxide Detectors In Your Home? Yes Information not available 07/11/2014 Are You Passively Exposed To Smoke? No Information no t available 07/11/2014 How Much Tobacco Do You Smoke? No Information not available 07/11/2014 Smoking Pre- No Information not available 07/11/2014 General Stress Level Low Information not available 07/11/2014 Do You Use Sunscreen Routinely? No Information not available 07/11/2014 Do You Have Difficulty Walking Or Climbing Stairs? No Information not available 01/01/2015 Sex: Unknown Functional Status Question Answer Note LastModified by Organizat ion Details LastModified Time What is your level of alcohol consumption? None Information not available 07/11/2014 Are you currently employed? Yes Information not available 07/11/2014 Do you have difficulty doing errands alone? No Information not available 01/01/2015 What is your occupation? [employer] Information not available 07/11/2014 Do you have difficulty dressing or bathing? No Information not available 01/01/2015 What is your exercise level? Occasional Information not available 07/11/2014 Mental Status Question Answer Note LastModified by Organization D etails LastModified Time Do you have difficulty concentrating, remembering or making decisions? No Information no t available 01/01/2015 Family History Relationship Description Onset Age of this Age Resolved Age Notes LastModified by Organization Details LastModified Time Mother Hypertensive disorder [email or web address] Not available 2014 10:32:03 Maternal Grandmother Hypertensive disorder [email or web address] Not available 2014 10:32:03 Maternal Grandmother Diabetes mellitus [email or web address] Not available 2014 10:32:03 Maternal Grandmother Hypercholest erolemia [id number] Not available 2014 10:32:03 Medical History Condition Response Other N Breast Cancer N Lung Disease N Depression N Breast Problem N Anesthesia Complications N Headaches/Migraines N Anxiety Disorder N Arthritis N Infertility N Polyps N Acid Reflux (GERD) N Cancer N Stroke N Endometriosis N High Cholesterol N Fibromyalgia N Kidney Disease N Heart Problems N Kidney or Bladder Problems N Thyroid Problems N GI Problems N Acne N Eating Disorder N Anemia N Ovarian Cancer N Diabetes N Blood Transfusions N Abuse/Domestic Violence N Asthma N Hepatitis N Heart Disease N Pre-Eclampsia N Hypertension N Osteoporosis N Gynecological History Statement/Question Response Abnormal Pap N On BCP's at Conception? N STIs/STDs Y HPV Vaccine N Age at Menarche 15 Current Control Method Age at First Child 20 Sexually Active? Y Date of Last Pap Smear 07/11/2014 Sexual Problems? N LMP Approximate Desired Control Method Sterilizati on Obstetrics History GPAL:G 3 P 3 0 0 2 Type Value Multiple Births 0 Full Term 3 Induced 0 Spontaneous 0 Premature 0 Living 2 Ectopics 0 Total 3 Past Encounters Encounter ID Performer Location Encounter Start Date Encounter Closed Date Diagnosis/Indication Diagnosis SNOMED-CT Code Diagnosis ICD10 Code Diagnosis Note [id number] MD Dony [facility]ale [facility] (BEHAVIORAL HEALTH ASSISTANT) [address] [place] [address] [phone] 8 07/11/2014 09:54:55 07/14/2014 21:37:51 Late entry into care [id number] Deliveries by [phone] [id number] MD Dony [facility]ale [facility] (BEHAVIORAL HEALTH ASSISTANT) [address] [place] [address] [phone] 8 07/25/2014 11:49:28 07/25/2014 14:18:43 Deliveries by [id number] History of RhD negative 137528761 s ection following previous section 212137693 Herpes simplex [id number] MD Dony Vitale [facility] (BEHAVIORAL HEALTH ASSISTANT) [address] [place] [address] [phone] 8 09/18/2014 14:59:30 09/19/2014 16:52:38 [id number] s ection following previous section 454366594 Herpes simplex 22286258 History of RhD negative 028645136 Obesity [id number] MD Dony Vitale [facility] (BEHAVIORAL HEALTH ASSISTANT) [address] [place] [address] [phone] 8 11/21/2014 11:16:46 11/26/2014 00:11:17 [id number] s ection following previous section 338571363 Group B St reptococcus carrier [id number] 103 Herpes simplex 30882590 History of RhD negative [id number] Kameron Billingsley MD [facility] (BEHAVIORAL HEALTH ASSISTANT) [address] [place] [address] 12/03/2014 10:49:06 12/03/2014 18:00:14 Normal [id number] MD [facility]ale [facility] (BEHAVIORAL HEALTH ASSISTANT) [address] [place] [address] [phone] 8 12/15/2014 16:26:02 12/15/2014 20:21:23 Herpes simplex 82223335 s ection following previous section 684118447 History of RhD negative [id number] MD Dony Vitale [facility] (BEHAVIORAL HEALTH ASSISTANT) [address] [place] [address] [phone] 8 01/01/2015 12:22:05 01/01/2015 16:09:33 [id number] MD Dony Vitale [facility] (BEHAVIORAL HEALTH ASSISTANT) [address] [place] [address] [id number] 8 01/09/2015 11:21:56 01/13/2015 09:03:29 Normal [id number] MD Dony Vitale [facility] (BEHAVIORAL HEALTH ASSISTANT) [address] [place] [address] [id number] 8 01/27/2015 10:34:35 01/27/2015 15:33:35 [id number] Z33.1 Deliveries by [id number] MD Dony Vitale [facility] (BEHAVIORAL HEALTH ASSISTANT) [address] [place] [address] [phone] 8 02/19/2015 10:09:49 02/19/2015 14:59:44 section following previous section [id number] O34.21 Postoperative visit 1836 31003 Z09 [id number] Zoe Xiao, SET UP TECHNICIAN-BC [facility] (KIM [id number]) [address] [place] [address] [phone] 2 02/05/2021 10:08:07 02/08/2021 17:48:48 Tuberculosis screening 119290953 Z11.1 lab pending. will tailor treatment accordingl y upon receipt. History an d physical examination, [facility] 19287004 Z02.0 negative assessment . no restrictio ns indicated. denies asthma, heart disease and sickle cell. Health Concerns Section Related Observation LastModified by Organization Detai ls LastModified Time None Recorded Concern Status LastModified by Organization Details LastModified Time None Recorded Advance Directives Directive N: Payers Encounter Date Sequence Insurance Name Policy Number Policy Marte Covered Member ID Marte Member ID Guarantor Name 01/01/2015 1 [facility] PRIOR TO 10/15/2020 (MEDICAID REPLACEMENT - HMO) Malaika Newton [id number] Malaika Newton 01/09/2015 1 [facility] PRIOR TO 10/15/2020 (MEDICAID REPLACEMENT - HMO) Malaika Newton [id number] Malaika Newton 01/27/2015 1 [facility] PRIOR TO 10/15/2020 (MEDICAID REPLACEMENT - HMO) Malaika Newton [id number] Malaika Newton 02/19/2015 1 [facility] PRIOR TO 10/15/2020 (MEDICAID REPLACEMENT - HMO) Malaika Newton [id number] Malaika Newton 02/05/2021 1 [facility] ON OR AFTER 10/15/20 (MEDICAID REPLACEMENT - HMO) Malaika Newton [id number] Malaika Newton Notes Date Note Type Note Provider Name and Address Organization Details Recorded Time 01/01/2015 text/html Name Sravani De Souza Gokul Light MD Attn: [address] [place], [address], [facility] [place] 01/01/2015 14:41:55 02/19/2015 text/html [facility]. N o c/o. Gokul Light MD Attn: [address] [place], [address], [facility] [place] 02/19/2015 14:52:34 02/05/2021 text/html Pt presents to clinic requesting a school ([facility], CHILD AND [employer]OL[employer]) physical. She denies nausea, vomiting, fever, rash, cough, CP, SOB, CONKLIN, chills, diarrhea, constipation and dysuria. ANA Mendoza Attn: [address] [place], [address], [place] [facility] 02/05/2021 10:44:45 OBGyn Episode Ob Episode Information Episode Created Date Number of Fetuses Patient Bloodtype Patient rh Status Prepregnancy Weight lbs Domestic Partner Domestic Partner Phone Father Name Shipping And Receiving Coordinator Status 01/10/20 15 1 CLOSED Fetus Data First Name Last Name Admitted to NICU Weight (g) Sex Living Outcome Pediatric Complications Fetus ID Race Codes Race Delivery Type 2721.55 2 F Full Term [id number] Sean Calculation Initial Sean Date Initial Exam [...] Complications Tubal Sterilization Discharge Date Comments 9 Regional-Sp inal 40 false Discharge Information Feeding Method Contraceptive Method Maternal HG B and HCT Levels Ob Episode Information Episode Created Date Number of Fetuses Patient Bloodtype Patient rh Status Prepregnancy Weight lbs Domestic Partner Domestic Partner Phone Father Name Shipping And Receiving Coordinator Status 01/10/20 15 1 CLOSED Fetus Data First Name Last Name Admitted to NICU Weight (g) Sex Living Outcome Pediatric Complications Fetus ID Race Codes Race Delivery Type F Full Term [id number] Sean Calculation Initial Sean Date Initial Exam [...] Complications Tubal Sterilization Discharge Date Comments 6 Regional-Sp inal 40 false Discharge Information Feeding Method Contraceptive Method Maternal HG B and HCT Levels Ob Episode Information Episode Created Date Number of Fetuses Patient Bloodtype Patient rh Status Prepregnancy Weight lbs Domestic Partner Domestic Partner Phone Father Name Shipping And Receiving Coordinator Status 07/12/19 15 1 B Negative 250 Jarod Uribe CLOSED Fetus Data First Name Last Name Admitted to NICU Weight (g) Sex Living Outcome Pediatric Complications Fetus ID Race Codes Race Delivery Type Viktor Uribe false 3572.03 7 M Full Term 87717 2054-5 Black or Afric an Ameri can Problems Problem Notes Baby Boy-Sravani [place]-C Section-Going to try to breast feed-No Shipping And Receiving Coordinator as of yet Problem Name Start Date End Date Resolution Snomed Code Not e Deliveries by 04 Infection by Trichomonas [id number] section following previous section 288897233 Herpes simplex 98649851 HSV 1 -2 Obesity 961127569 Group B Streptococcus carrier [id number] in urine RhD negative 989788003 ordered rhogam at 28.4 wks Sean Calculation Initial Sean Date Initial Exam Date Initial Exam Provider Initial Ultrasound Date Last Menstrual Period Date Ultra Sound Weeks Gestation 02/09/2015 07/11/2014 07/15/2014 03/01/2014 10 Eighteen To Twenty Week Sean Update Ultra Sound Date Fundal Height At Umbil Quickening Date Ultra Sound Latest Weeks Gestation Final Sean Confirmed By Final Sean Confirmed Date Final Sean Date Ultra Sound Latest Days Gestation 09/24/19 15 20 [email or web address] 07/25/2014 015 6 Pre- Flowsheet Flowsheet Date 07/11/2014 Gayle Score Blood Edema Fundus Height Fundus Units Glucose Ketones Leukocytes Nitrite Labor Signs Protein Cervic Dilation Cervic Effacement Cervic Station neg none 8 wks none neg 0cm 0% Type Weight in lbs Pre/Post Dialysis Refused 269.872201452141 BP Diastolic BP Location Tested BP Systolic BP Type 64 108 sitting Fetus Heart Rate Present Fetus Movement Comments habitus limiting exam. 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 / also optin to have repc/s with btl rather than ./ Rh ng counseling done / uc/s taken today after tx/ No hx of genital or oral hsv lesions Flowsheet Date 09/18/2014 Gayle Score Blood Edema Fundus Height Fundus Units Glucose Ketones Leukocytes Nitrite Labor Signs Protein Cervic Dilation Cervic Effacement Cervic Station neg none 24 cm none large none trace Type Weight in lbs Pre/Post Dialysis Refused 266.782477529127 BP Diastolic BP Location Tested BP Systolic BP Type 70 116 sitting Fetus Heart Rate Present A 150 Present Fetus Movement A Yes Comments anatomical survey / 2nd Inte grated Panel today Flowsheet Date 11/21/2014 Gayle Score Blood Edema Fundus Height Fundus Units Glucose Ketones Leukocytes Nitrite Labor Signs Protein Cervic Dilation Cervic Effacement Cervic Station neg none negative trace Type Weight in lbs Pre/Post Dialysis Refused 268.489379707646 BP Diastolic BP Location Tested BP Systolic BP Type 70 114 sitting Fetus Heart Rate Present Fetus Movement Comments Flowsheet Date 12/03/2014 Gayle Score Blood Edema Fundus Height Fundus Units Glucose Ketones Leukocytes Nitrite Labor Signs Protein Cervic Dilation Cervic Effacement Cervic Station 33 cm none trace Type Weight in lbs Pre/Post Dialysis Refused 269.906219303565 BP Diastolic BP Location Tested BP Systolic BP Type 56 118 sitting Fetus Heart Rate Present A 138 Present Fetus Movement A Yes Comments received rhogam last visit, wants BTL info on tdap given Flowsheet Date 12/15/2014 Gayle Score Blood Edema Fundus Height Fundus Units Glucose Ketones Leukocytes Nitrite Labor Signs Protein Cervic Dilation Cervic Effacement Cervic Station neg none 32 cm none negative none neg Type Weight in lbs Pre/Post Dialysis Refused 270.844333047110 BP Diastolic BP Location Tested BP Systolic BP Type 66 106 sitting Fetus Heart Rate Present A 142 Fetus Movement A Yes Comments Discussed about Rep C/S and BTL and tentative date for it on 02/02/2015. WIll obtain all forms done next visit. BTL were already done. Flowsheet Date 01/01/2015 Gayle Score Blood Edema Fundus Height Fundus Units Glucose Ketones Leukocytes Nitrite Labor Signs Protein Cervic Dilation Cervic Effacement Cervic Station neg none 34 cm none large none trace Type Weight in lbs Pre/Post Dialysis Refused 271.908290957915 BP Diastolic BP Location Tested BP Systolic BP Type 76 110 standing Fetus Heart Rate Present A 143 Fetus Movement A Yes Comments scheduled for 02-03-15 rep c /s with BTL See informed conent forms- Obtained inf consent today Flowsheet Date 01/09/2015 Gayle Score Blood Edema Fundus Height Fundus Units Glucose Ketones Leukocytes Nitrite Labor Signs Protein Cervic Dilation Cervic Effacement Cervic Station neg none 35 none moderate none 1+ Type Weight in lbs Pre/Post Dialysis Refused 276.456580152250 BP Diastolic BP Location Tested BP Systolic BP Type 62 118 sitting Fetus Heart Rate Present A 140 Fetus Movement A Yes Comments rto in 1 wks Flowsheet Date 01/27/2015 Gayle Score Blood Edema Fundus Height Fundus Units Glucose Ketones Leukocytes Nitrite Labor Signs Protein Cervic Dilation Cervic Effacement Cervic Station trace none 39 cm none moderate none neg 0cm 0% -4 Type Weight in lbs Pre/Post Dialysis Refused 272.995509135012 BP Diastolic BP Location Tested BP Systolic BP Type 80 122 sitting Fetus Heart Rate Present A 147 Fetus Movement A Yes Comments today to have pre-op testing . No c/o / gbs taken Flowsheet Date 02/19/2015 Gayle Score Blood Edema Fundus Height Fundus Units Glucose Ketones Leukocytes Nitrite Labor Signs Protein Cervic Dilation Cervic Effacement Cervic Station Type Weight in lbs Pre/Post Dialysis Refused 251.011593804070 BP Diastolic BP Location Tested BP Systolic BP Type 72 110 sitting Fetus Heart Rate Present Fetus Movement Comments Menstrual History Last Menstrual Date Menses Monthly On Bcp Conception Prior Menses Frequency Hcg Plus Date Menarche Onset Age 1103/01/2014 false false 13 Genetic Screening And Infection History Question Response Note Patient's Age Will Be 35 Yea rs Or Older At Estimated Date of Delivery false Thalassemia (Thai, Jamaican, Mediterranean, Or Background): MCV < 80 false Neural Tube Defect (Meningom yelocele, Spina Bifida, Or Anencephaly) false Congenital Heart Defect false Down Syndrome false Yaya-Sachs (eg, Christianity, Cajun, Luxembourgish-Gilbert) f alse Delicia Disease false Sickle Cell Disease Or Trait () false Hemophilia Or Other Blood Disorders false Muscular Dystrophy false Cystic Fibrosis false Vinod's Chorea false Mental Retardation/Autism false If Yes, Was Person Tested For Fragile X? false Other Inherited Genetic Or Chromosomal Disorder false Maternal Metabolic Disorder (eg, Type 1 Diabetes , PKU) false Patient Or Baby's Father Had A Child With Defects Not Listed Above false Recurrent Loss, Or A Stillbirth false Medications (including Suppl ements, Vitamins, Herbs, OTC Drugs), Illicit/Recreational Drugs, Alcohol false If Yes, Agent(s) And Strength/Dosage false Any Other Genetic History false Live With Someone With TB Or Exposed To TB false Patient Or Partner Has History Of Genital Herpes false Rash Or Viral Illness Since Last Menstrual Perio d false History Of STD, Gonorrhea, Chlamydia, HPV, Syphi lis true TRICH, 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 [place] None true 02/05/2015 Discharge Information Feeding Method Contraceptive Method Maternal HG B and HCT Levels
[2024-09-22] LABS: Platelet Estimate Adequate (Adequate)
[2024-09-22 00:02] LABS: Anisocytosis 1+; Hypochromasia 1+; Large Platelets Present; Microcytosis 1+ (NORMAL); Ovalocytes 1+; Schistocytes None Seen
[2024-09-22 00:19] LABS: Alanine Aminotransferase 14 U/L (6-35); Albumin Level 3.5 g/dL (3.5-5.1); Alkaline Phosphatase 67 U/L (38-126); Anion Gap 7 mmol/L (4-12); Aspartate Amino Transferase 23 U/L (14-36); Bilirubin,Total 0.1 mg/dL (0.2-1.3); Blood Urea Nitrogen 13 mg/dL (7-17); Calcium 8.9 mg/dL (8.4-10.2); Carbon Dioxide 23 mmol/L (22-30); Chloride 108 mmol/L (98-107); Estimated CRCL calculation 128 ml/min; Estimated Glomerular Filt Rate > 60; Glucose 153 mg/dL (65-110); Lipase 31 U/L (23-300); Potassium 3.5 mmol/L (3.4-5.0); Sodium 138 mmol/L (137-145); Total Protein 6.8 g/dL (6.3-8.2)
[2024-09-22 00:31] LABS: Troponin I < 0.012 ng/mL (0.000-0.034)
[2024-09-22 00:49] VITALS: BP 118/53; PULSE 99; RESP 18; O2SAT 100
[2024-09-22 00:50] VITALS: O2SAT 99
[2024-09-22] MEDS: KETOROLAC 15 MG/ML VIAL (*BKC) IV PUSH (01:01)
--- NOTE | 2024-09-22 01:10 | ED_ITS ---
HPI - Chest Pain General Chief Complaint: Chest Pain Stated Complaint: chest pain Time Seen by Provider: 09/21/24 23:36 History of Present Illness HPI narrative: 38-year-old female presenting to the emergency depart with chest pain and shoulder pain. Patient states that the pain has been intermittent and on off since yesterday, worse with movement and rotation. She states that her shoulder has been hurting her but denies any specific injury. States it hurts trying to lift her arm against gravity and do overhead maneuvers. Chest pain is localized to the sternum and also worse with movement. She does not endorse a history of indigestion and states that the symptoms may have started after eating [employer] and smoking earlier. Denies any shortness a breath, nausea, vomiting, back pain, fever, chills, weakness. No neuropathy. She was otherwise in her normal state of health. Denies any cardiac history otherwise. Does not take any chronic medications. Related Data Home Medications ?Medication ?Instructions ?Recorded ?Confirmed ?Last Taken ?Type ibuprofen 800 mg tablet 09/25/19 Unknown History Allergies Allergy/AdvReac Type Severity Reaction Status Date / Time No Known Allergies Allergy Mild Verified 01/20/08 20:54 Review of Systems 2 Review of Systems: As reviewed above in HPI Exam 2 Narrative: GENERAL: [Well-appearing, well-nourished, and in no acute distress.] HEAD: [Normocephalic, atraumatic.] EYES: [PERRLA and EOMI.] ENT: Nares clear, no rhinorrhea or epistaxis. Mucous membranes moist. NECK: Supple. CHEST: [Clear to auscultation. No respiratory distress.] Reproducible tenderness over the sternum without any overlying skin changes HEART: [Regular rate and rhythm]. No murmur heard. [Normal peripheral pulses.] ABDOMEN: [Soft, nondistended], [nontender], [No rigidity or guarding] EXTREMITIES: Pain with range of motion above 90? in the right shoulder with tenderness along the anterior lateral AC joint on the right side. Positive Neer's testing. Distal senior marketing specialist strength 5/5, good range of motion of the elbow and wrist. Able to oppose each digit. SKIN: Warm, dry, no rash. NEURO: [No focal deficits]. Alert and oriented [x3.] PSYCH: [Normal mood and affect.] Course Vital Signs Vital signs: Vital Signs Temperature 36.8 C 09/21/24 23:17 Pulse Rate 83 09/21/24 23:17 Respiratory Rate 24 H 09/21/24 23:17 Blood Pressure 134/76 09/21/24 23:17 Pulse Oximetry 100 09/21/24 23:17 Oxygen Delivery Room Air 09/21/24 23:17 Temperature 36.8 C 09/21/24 23:17 Pulse Rate 99 09/22/24 00:49 Respiratory Rate 18 09/22/24 00:49 Blood Pressure 118/53 L 09/22/24 00:49 Pulse Oximetry 99 09/22/24 00:50 Oxygen Delivery Room Air 09/22/24 00:50 MDM - Chest Pain MDM Narrative Medical decision making narrative: 38-year-old female presenting to the emergency depart with chest pain as well as shoulder pain. She states that the pain started after eating [employer] smoking yesterday. Intermittent in nature, history of indigestion. She has some pain with manipulation of the right shoulder along the anterior lateral AC joint with positive Neer's test and pain reproduced with passive and active range of motion above 90? consistent with potential bursitis or impingement. Reproducible pain in the chest wall also raises suspicion for musculoskeletal etiology turn symptomatology rather than intrathoracic process. Low suspicion ACS, pneumonia, pneumothorax or dislocation/fracture given the lack of injury. Low risk factors for cardiac disease. Cardiac workup ordered including CBC, CMP, troponin, EKG, chest x-ray. Shoulder x-ray was ordered. She was given Toradol for analgesia and re-evaluated. Patient's workup was reassuring. X-ray of the shoulder shows no acute osseous findings. X-ray of the chest shows no consolidations, pleural effusions or pneumothorax. No cardiomegaly. Patient's troponin is negative and her delta troponin is negative. She has an anemia of 8.5 with some MCV of 72 concerning for iron deficiency anemia but no concerning historical elements for active bleeding. Patient will be informed about this for follow-up outpatient. Her workup otherwise is unremarkable. Patient re-evaluated with some symptom control. She is safe for discharge home at this time and will be given anti-inflammatories and return precautions as well as instructions to follow up about her anemia. Medical Records Data Attestation: I reviewed the patient's medical records. Lab Data Attestation: I reviewed the patient's lab results. 09/21/24 23:32 09/21/24 23:32 Labs: Lab Results 09/21/24 09/22/24 Range/Units 23:32 02:09 WBC 5.8 (4.5-10.0) K/mm3 RBC 4.07 L (4.2-5.4) M/mm3 Hgb 8.5 L (12.0-15.0) g/dL Hct 29.6 L (37.0-47.0) % MCV 72.7 L (80-100) fl MCH 20.9 L (26-34) pg MCHC 28.7 L (32-36) g/dl RDW 20.4 H (11.5-14.5) % Plt Count 329 (150-375) k/mm3 MPV 9.8 (7.4-10.4) fl Immature Gran % (Auto) 0.2 (0-0.5) % Neut % (Auto) 57.6 (45.5-73.1) % Lymph % (Auto) 33.8 (18.3-44.2) % [place] % (Auto) 6.2 (2.6-8.5) % Eos % (Auto) 1.9 (0-4.4) % Baso % (Auto) 0.3 (0.2-1.2) % Lymph # (Auto) 1.95 (0.9-3.2) K/mm3 [place] # (Auto) 0.4 (0.1-0.6) K/mm3 Eos # (Auto) 0.1 (0-0.3) K/mm3 Baso # (Auto) 0.0 (0.0-0.1) K/mm3 Abs Immat Gran (auto) 0.01 (0.00-0.031) K/mm3 Absolute Neuts (auto) 3.3 (1.3-6.7) K/mm3 Absolute Nucleated RBC 0.000 (0.0-0.012) K/mm3 Band Neutrophils % Not Reportable Nucleated RBC % 0.0 (0.0-0.2) % Platelet Estimate Adequate (Adequate) Large Platelets Present Hypochromasia 1+ Anisocytosis 1+ Microcytosis 1+ (NORMAL) Ovalocytes 1+ Schistocytes None seen PT 14.0 (11.1-14.7) Seconds INR 1.1 APTT 25.5 (22.3-36.8) Seconds Sodium 138 (137-145) mmol/L Potassium 3.5 (3.4-5.0) mmol/L Chloride 108 H (98-107) mmol/L Carbon Dioxide 23 (22-30) mmol/L Anion Gap 7 (4-12) mmol/L BUN 13 (7-17) mg/dL Creatinine 0.75 (0.7-1.0) mg/dL Estim Creat Clear Calc 128 ml/min Estimated GFR > 60 (59 - ) Glucose 153 H (65-110) mg/dL Calcium 8.9 (8.4-10.2) mg/dL Total Bilirubin 0.1 L (0.2-1.3) mg/dL AST 23 (14-36) U/L ALT 14 (6-35) U/L Alkaline Phosphatase 67 (38-126) U/L Troponin I < 0.012 < 0.012 (0.000-0.034) ng/mL Total Protein 6.8 (6.3-8.2) g/dL Albumin 3.5 (3.5-5.1) g/dL Lipase 31 (23-300) U/L Imaging Data Attestation: I personally reviewed and interpreted this imaging study as follows: My impression: No acute osseous abnormality in the shoulder, no findings in the thorax ECG Data EKG #1: Attestation: I personally reviewed and interpreted this ECG as follows: ECG completion date: 09/21/24 ECG completion time: 23:18 Prior ECG tracings: not available for review Interpretation: No ST segment elevations, depressions or ectopy. QTC 420, IL interval 122. Rate of 83 beats per minute. Discharge Plan Discharge Clinical Impression: Atypical chest pain, Acute shoulder pain, Impingement of right shoulder Patient Disposition: Home Condition: Stable Instructions: Antibiotic Form, Chest Pain (ED), Shoulder Pain (ED), Shoulder Impingement Syndrome (ED) Additional Instructions: Your cardiac markers and workup appears very reassuring. Your x-ray showed no acute injuries. Your symptoms could be musculoskeletal nature and we will send you home with anti-inflammatory measurements to control the symptoms. Your shoulder pain could be something called impingement versus bursitis. Anti- inflammatories will help with this as well as rest and ice. If this is a persistent concern you might be needing evaluation by an orthopedics or sports administrator. Referred your primary care provider for follow-up. Return with any new or worsening concerns. Patient Language: Vietnamese Prescriptions: New acetaminophen [Tylenol Extra Strength] 500 mg tablet 1,000 mg PO TID PRN (Reason: pain) Qty: 30 0RF ibuprofen 600 mg tablet 600 mg PO TID PRN (Reason: pain) Qty: 20 0RF No Action ibuprofen 800 mg tablet Follow-up/Referrals: Jaden Evans MD [Primary Care Provider] - Time of Disposition: 02:53
--- NOTE | 2024-09-22 02:04 | ECG_ITS ---
Test Date: 2024-09-22 02:25:06 Measurements Intervals [place] Rate: 70 P: 14 PA: 154 QRS: 11 QRSD: 89 T: -52 QT: 395 QTc: 429 Interpretive Statements SINUS RHYTHM CONSIDER RIGHT VENTRICULAR CONDUCTION DELAY MINIMAL Q WAVES- HIGH LATERAL LEADS ST-T WAVE ABNORMALITY IN ANTEROLAT/INF LEADS- CONSIDER ISCHEMIA ABNORMAL ECG Compared to ECG 09/21/2024 23:18:58 POSSIBLE ISCHEMIA NOW PRESENT Electronically Signed On 09-22-2024 07:09:17 CDT by Nicholas Rockwell D.O.
[2024-09-22 02:39] LABS: Troponin I < 0.012 ng/mL (0.000-0.034)
[2024-09-22 03:14] VITALS: BP 123/60; PULSE 90; RESP 16; O2SAT 99
[2024-09-22 03:17] VITALS: BP 123/60; PULSE 90; RESP 16; O2SAT 99
== END 2024-09-22 03:20 | disposition home or self-care (01) ==
PROVIDERS: Emergency Provider Student in an Organized Health Care Education/Training Program; PCP Emergency Medicine
DX: R07.89 Other chest pain (principal); M25.811 Other specified joint disorders, right shoulder; R94.31 Abnormal electrocardiogram [ECG] [EKG]
CPT/HCPCS: 36415; 71046; 73030; 80053; 83690; 84484; 85025; 85610; 85730; 93005; 96374; 99284; J1885